=== PATIENT | male | born 1970 | race Caucasian/White ===

== ENCOUNTER 2019-06-25 12:45 | Outpatient (CLI) | payer BC, SELFPAY ==
--- NOTE | 2019-06-25 13:07 | XR_ITS ---
WS: [id number] XR ankle LT min 3V* [id number] REASON FOR EXAM: ankle pain FINDINGS: A pseudoarthrosis is noted between the tibia and fibula distally. There is mild degenerate changes of the articulation of the fibula with the talus. A remote fracture of the fibula is seen which is healed. XR/XR ankle LT min 3V* [id number] IMPRESSION: Pseudoarthrosis between the tibia and fibula Osteoarthritic changes of the ankle.
--- NOTE | 2019-06-25 13:07 | XR_ITS ---
WS: [id number] XR knee RT 3V* [id number] REASON FOR EXAM: knee pain FINDINGS: Degenerate changes along the articular surface of the medial and lateral knee. There is spurring off the medial condyle of the femur and medial tibial plateau. The patellofemoral articulation shows mild osteoarthritic changes. XR/XR knee RT 3V* [id number] IMPRESSION: Osteoarthritic changes of the knee
--- NOTE | 2019-06-25 13:07 | XR_ITS ---
WS: [id number] XR knee LT 3V* [id number] REASON FOR EXAM: knee pain FINDINGS: Mild degenerate changes along the articulation of the femur with the tibia was spurring barndy ng the lateral plateau of the tibia. The patella femoral articulations are normal. The patella tibial space is normal. XR/XR knee LT 3V* [id number] IMPRESSION: Mild osteoarthritic changes of the knee.
== END 2019-06-25 12:46 | disposition home or self-care (01) ==
LOC: RADWPI 12:49
PROVIDERS: Family Provider Family Medicine; PCP Family Medicine; Visit Provider Family Medicine
DX: M17.12 Unilateral primary osteoarthritis, left knee (principal); M25.562 Pain in left knee; M19.072 Primary osteoarthritis, left ankle and foot; M96.0 Pseudarthrosis after fusion or arthrodesis; Y83.8 Other surgical procedures as the cause of abnormal reaction of the patient, or of later complication, without mention of misadventure at the time of the procedure
CPT/HCPCS: 73562; 73610; 80053; 80061; 83036

== ENCOUNTER 2019-11-12 14:00 | Emergency (ER) | payer BC, SELFPAY ==
[2019-11-12] VITALS (12 sets, daily range): BP systolic 96–125; BP diastolic 61–82; PULSE 54–75; RESP 14–19; TEMP 36.4; O2SAT 94–99; BMI 36.8
--- NOTE | 2019-11-12 14:16 | ECG_ITS ---
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 Measurements Intervals [place] Rate: 78 P: 7 AZ: 179 QRS: 17 QRSD: 98 T: -8 QT: 374 QTc: 427 Interpretive Statements SINUS RHYTHM Compared to ECG 02/13/2019 12:11:29 No significant changes Electronically Signed On 11-12-2019 16:54:06 CDT by Andrew Castillo M.D. [id number]
--- NOTE | 2019-11-12 14:17 | ED_ITS ---
HPI - Chest Pain General: Chief Complaint: Chest Pain Stated Complaint: cp Time Seen by Provider: 11/12/19 14:10 History of Present Illness: HPI narrative: This patient is a 49-year-old male presenting today with chest pain. Started about 1245 this afternoon. He was folding laundry at the time. He has had similar chest pain in February when he was admitted to the hospital for it. He had an angiogram which he said showed spasm of the arteries but no blockages. He does have a history of diabetes, hypercholesterol, hypertension. Since his heart problems in the fall he is lost about 40 pounds and has been really trying to get his health under control. He was started on isosorbide mononitrate after the angiogram and he is continued to take that. He also took 2 nitro tablets this afternoon which did help the pain. It started at about a 7 out of 10 and is now at a 4 out of 10. MD complaint: chest pain and chest heaviness Pertinent past history: prior SC and other (Coronary artery spasm) Onset (ago): hour(s) (2) Timing of current episode: constant Prior episodes: Yes Onset: other (During light activity) Pain location: left chest Pain radiation: left arm Severity: moderate Quality: tightness and aching Relieving factors: nitroglycerin and rest Exacerbating factors: nothing Associated symptoms: Reports nausea; Deny dyspnea or fever(s) Review of Systems General: Reports: 10 or more systems reviewed and unremarkable except in HPI and below Const: Denies: fever(s), chills, fatigue or malaise Eyes: Denies: change in vision ENMT: Denies: odynophagia Card: Denies: chest pain or swelling of feet/ankles Resp: Denies: dyspnea, productive cough or non-productive cough GI: Reports: nausea : Denies: flank pain Musc: Denies: neck pain or back pain Skin/Breast: Denies: rash Neuro: Denies: headache(s), numbness in extremities or weakness in extremities Enrique/Lymph: Denies: easy bruising or easy bleeding PFS ED PFSH: Medical History Diabetes Hypercholesteremia Hypertension Osteoarthritis of knees, bilateral Osteoarthritis of left ankle Unstable angina Social History Smoking and tobacco status: never smoked Alcohol intake: never Physical Exam Const: COMMON NORMALS: no acute distress, patient oriented x3, no limitations and alert GENERAL APPEARANCE: cooperative and comfortable HENMT: HEAD & SCALP: normal to inspection FACE & SINUS: normal facial exam Eye: GENERAL EYE: appearance normal, both eyes and all related structures Neck/C-Spine: COMMON NORMALS: supple, no meningeal signs and no JVD Chest: COMMONS NORMALS: normal inspection of the chest Resp: COMMON NORMALS: normal respiratory effort, No use of accessory muscles and clear to auscultation bilaterally AUSCULTATION: clear to auscultation bilaterally Cardio: COMMON NORMALS: no JVD, regular rate, regular rhythm and No murmurs present (Cardio) RATE: regular rate RHYTHM: regular rhythm GI: COMMON NORMALS: Normal to inspection, nondistended, normoactive bowel sounds present, Soft to palpation and non-tender INSPECTION: Yes normal to inspection AUSCULTATION: Yes normoactive bowel sounds PALPATION: Yes Soft to palpation Back/Pelvis: COMMON NORMALS: thoracic and lumbar spine normal to inspection Extremity: COMMON NORMALS: normal to inspection Neuro: COMMON NORMALS: patient oriented x3, moves all extremities, no focal motor deficits and no sensory deficits noted SENSORIUM/ORIENTATION: Yes alert MENINGEAL SIGNS: Yes no meningeal signs Psych: COMMON NORMALS: mental status grossly normal, cooperative and normal affect Skin: COMMON NORMALS: no rashes or lesions noted and turgor normal GENERAL SKIN EXAM: no rashes or lesions noted and turgor normal Course ED course: Patient presented with chest pain. He has a history of SC related to coronary artery spasm. His symptoms resolved while in the ED. His troponins are negative and his EKG is unchanged. We discussed admission versus outpatient follow-up and he prefers to go home. I think he is safe to do so. Vital Signs: Vital signs: Vital Signs Temperature 97.6 F 11/12/19 14:09 Pulse Rate 67 11/12/19 18:28 Respiratory Rate 18 11/12/19 18:28 Blood Pressure 125/82 11/12/19 18:28 Pulse Oximetry 97 11/12/19 18:28 MDM - Chest Pain Lab Data: Labs: Lab Results 11/12/19 11/12/19 11/12/19 Range/Units 14:15 14:15 14:15 WBC 6.2 (4.0-10.0) 10^3/ uL RBC 4.80 (4.1-5.3) 10^6/u L Hgb 13.6 (11.7-16.6) g/dL Hct 40.7 L (42.0-52.0) % MCV 84.8 (80-94) fL MCH 28.3 (28.0-34.0) pg MCHC 33.4 (30.0-36.0) g/dL RDW 12.3 (12.1-15.1) % Plt Count 116 L (130-400) 10^3/c mm MPV 10.7 H (7.4-10.4) fL Neut % (Auto) 44.4 % Lymph % (Auto) 37.8 % [place] % (Auto) 7.7 % Eos % (Auto) 9.3 % Baso % (Auto) 0.6 % Neut # (Auto) 2.76 (1.8-7.7) 10^3/u L Lymph # (Auto) 2.4 (0.8-4.8) 10^3/u L [place]rill # (Auto) 0.5 (0.2-0.9) 10^3/u L Eos # (Auto) 0.6 (0.0-0.8) 10^3/u L Baso # (Auto) 0.0 (0.0-0.1) 10^3/u L Nucleated RBC % (a uto) 0 % Nucleated RBCs # 0.0 /100WBC PT 13.20 (12.1-14.9) SECO NDS INR 0.98 (0.8-1.2) Sodium 139 (136-145) mmol/L Potassium 4.0 (3.5-5.1) mmol/L Chloride 103 (98-107) mmol/L Carbon Dioxide 25 (22-29) mmol/L Anion Gap 15.0 (5-19) BUN 18 (6-20) mg/dL Creatinine 0.7 (0.7-1.2) mg/dL GFR Calculation 120.4 (90-130) mL/min Glucose 181 H (65-115) mg/dL Calculated Osmolal ity 289 (285-295) mOsm/k g Calcium 10.0 (8.5-10.5) mg/dL Total Bilirubin 0.3 (0.15-1.2) mg/dL AST 19 (0-40) U/L ALT 22 (0-41) U/L Alkaline Phosphata se 66 (40-130) IU/L Troponin T Baselin e (0-15) ng/L Troponin T 120 Min [place] (0-15) ng/L Delta Troponin T (0-10) ABS# Total Protein 7.0 (6.6-8.7) g/dL Albumin 5.0 (3.5-5.2) g/dL Globulin 2.0 (1.3-4.6) g/dL Lipase 47 (13-60) U/L 11/12/19 11/12/19 Range/Units 14:15 16:38 WBC (4.0-10.0) 10^3/ uL RBC (4.1-5.3) 10^6/u L Hgb (11.7-16.6) g/dL Hct (42.0-52.0) % MCV (80-94) fL MCH (28.0-34.0) pg MCHC (30.0-36.0) g/dL RDW (12.1-15.1) % Plt Count (130-400) 10^3/c mm MPV (7.4-10.4) fL Neut % (Auto) % Lymph % (Auto) % [place] % (Auto) % Eos % (Auto) % Baso % (Auto) % Neut # (Auto) (1.8-7.7) 10^3/u L Lymph # (Auto) (0.8-4.8) 10^3/u L [place] # (Auto) (0.2-0.9) 10^3/u L Eos # (Auto) (0.0-0.8) 10^3/u L Baso # (Auto) (0.0-0.1) 10^3/u L Nucleated RBC % (a uto) % Nucleated RBCs # /100WBC PT (12.1-14.9) SECO NDS INR (0.8-1.2) Sodium (136-145) mmol/L Potassium (3.5-5.1) mmol/L Chloride (98-107) mmol/L Carbon Dioxide (22-29) mmol/L Anion Gap (5-19) BUN (6-20) mg/dL Creatinine (0.7-1.2) mg/dL GFR Calculation (90-130) mL/min Glucose (65-115) mg/dL Calculated Osmolal ity (285-295) mOsm/k g Calcium (8.5-10.5) mg/dL Total Bilirubin (0.15-1.2) mg/dL AST (0-40) U/L ALT (0-41) U/L Alkaline Phosphata se (40-130) IU/L Troponin T Baselin e 10 (0-15) ng/L Troponin T 120 Min [place] 8.98 (0-15) ng/L Delta Troponin T -1.02 L (0-10) ABS# Total Protein (6.6-8.7) g/dL Albumin (3.5-5.2) g/dL Globulin (1.3-4.6) g/dL Lipase (13-60) U/L Discharge Plan Discharge Patient Disposition: Home Clinical Impression: Chest pain Qualifiers: Chest pain type: unspecified Qualified Code(s): R07.9 - Chest pain, unspecified Condition: Stable Prescriptions: No Action isosorbide mononitrate 30 mg tablet extended release 24 hr 30 mg PO DAILY 30 Days Qty: 30 RF: 5 lisinopril 20 mg tablet 20 mg PO DAILY 90 Days Qty: 90 RF: 3 metoprolol tartrate 50 mg tablet 25 mg PO BID 90 Days Qty: 90 RF: 3 lovastatin 20 mg tablet 20 mg PO DAILY 90 Days Qty: 90 RF: 3 metformin 1,000 mg tablet 1,000 mg PO DAILY 90 Days Qty: 90 RF: 3 glyburide 5 mg tablet 5 mg PO DAILY RF: 0 hydrochlorothiazide 25 mg tablet 12.5 mg PO DAILY RF: 0 Discharge Orders: Discharge Order (Routine); Ordered 11/12/19 Ordered By: Ava Tapia Referrals: Carlos Cameron MD [Primary Care Provider] - Princess Mederos MD [Physician] - 4-7 days Discharge Diet: Usual diet Discharge Activity: Resume usual activity Patient Instructions: Chest Pain (ED) Activity Restrictions/Additional Instructions: Return to the emergency department if you have new or worse symptoms or chest pain that does not resolve with nitro. Call Dr. Mederos's office in the morning to arrange close follow-up. Discharge Date/Time: 11/12/19 18:30 Coding Level of Care Code ED Certified Medical Dosimetrist for Kimberly Fwsuze Exam Comprehensive
[2019-11-12] MEDS: nitroglycerin 1 gm/inch oint Pkt 0.5 INCH TOPICAL (14:21)
[2019-11-12] MEDS: sodium chloride 0.9% 500 ML 999 ML IV (14:21)
[2019-11-12 14:32] LABS: Basophils % 0.6 %; Eosinophils # 0.6 10^3/uL (0.0-0.8); Eosinophils % 9.3 %; Hematocrit 40.7 % (42.0-52.0); Hemoglobin 13.6 g/dL (11.7-16.6); Lymphocytes # 2.4 10^3/uL (0.8-4.8); Lymphocytes % 37.8 %; Mean Corpuscular HGB Conc 33.4 g/dL (30.0-36.0); Mean Corpuscular Hemoglobin 28.3 pg (28.0-34.0); Mean Corpuscular Volume 84.8 fL (80-94); Mean Platelet Volume 10.7 fL (7.4-10.4); Monocytes # 0.5 10^3/uL (0.2-0.9); Monocytes % 7.7 %; Neutrophils # 2.76 10^3/uL (1.8-7.7); Neutrophils % 44.4 %; Nucleated Red Blood Cells % 0 %; Platelet Count 116 10^3/cmm (130-400); Red Cell Distribution Width 12.3 % (12.1-15.1); White Blood Count 6.2 10^3/uL (4.0-10.0)
[2019-11-12 14:47] LABS: INR 0.98 (0.8-1.2)
[2019-11-12 14:53] LABS: Alanine Aminotransferase 22 U/L (0-41); Alkaline Phosphatase 66 IU/L (40-130); Aspartate Amino Transferase 19 U/L (0-40); Blood Urea Nitrogen 18 mg/dL (6-20); Carbon Dioxide 25 mmol/L (22-29); Chloride 103 mmol/L (98-107); Creatinine Clr Calc Pharmacy 150.2258; Glomerular Filtration Rate 120.4 mL/min (90-130); Glucose 181 mg/dL (65-115); Lipase 47 U/L (13-60); Osmolality Calculated 289 mOsm/kg (285-295); Sodium 139 mmol/L (136-145); Total Bilirubin 0.3 mg/dL (0.15-1.2)
[2019-11-12 14:56] LABS: Troponin(5th) Baseline 10 ng/L (0-15)
--- NOTE | 2019-11-12 16:05 | XRR_ITS ---
PROCEDURE INFORMATION: Exam: XR Chest, 1 View Exam date and time: 11/12/2019 4:29 PM Age: 49 years old Clinical indication: Chest pain; Type not specified TECHNIQUE: Imaging protocol: XR of the chest Views: 1 view. COMPARISON: CR Chest 1 [place] [id number] 02/11/2019 11:39 AM FINDINGS: Lungs: Unremarkable. No consolidation. Pleural space: Unremarkable. No pleural effusion. No pneumothorax. Heart/Mediastinum: Unremarkable. No cardiomegaly. Bones/joints: Unremarkable. XR/XR chest 1V portable [id number] IMPRESSION: No acute findings.
[2019-11-12] MEDS: ondansetron 2 mg/ML SDV 2 mL 4 MG IVP (16:11)
[2019-11-12] MEDS: sodium chloride 0.9% 1,000 ML 999 ML IV (16:12)
[2019-11-12] MEDS: morphine 4 mg/mL SDV 1 mL IVP (16:12)
--- NOTE | 2019-11-12 16:16 | ECG_ITS ---
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 Measurements Intervals [place] Rate: 60 P: 13 MS: 175 QRS: 12 QRSD: 108 T: -11 QT: 427 QTc: 428 Interpretive Statements SINUS RHYTHM Compared to ECG 11/12/2019 14:19:19 No significant changes Electronically Signed On 11-12-2019 17:41:08 CDT by Andrew Castillo M.D. [id number]
--- NOTE | 2019-11-12 16:29 | PC.NURSE ---
XR performed at bedside
[2019-11-12 17:05] LABS: Troponin 5 2HR 8.98 ng/L (0-15)
[2019-11-12 17:17] LABS: Troponin 5 2HR Delta -1.02 ABS# (0-10)
== END 2019-11-12 18:30 | disposition home or self-care (01) ==
PROVIDERS: Emergency Provider Emergency Medicine; PCP Family Medicine
DX: R07.9 Chest pain, unspecified (principal); Z79.84 Long term (current) use of oral hypoglycemic drugs; E11.9 Type 2 diabetes mellitus without complications; I10 Essential (primary) hypertension
CPT/HCPCS: 12345; 36415; 71045; 80053; 83690; 84484; 85025; 85610; 93005; 93010; 96360; 96361; 96374; 96375; 99284; J2270; J2405; J7030; J7040

== ENCOUNTER 2020-02-10 20:52 | Emergency (ER) | payer BC, SELFPAY ==
[2020-02-10] VITALS (9 sets, daily range): BP systolic 104–166; BP diastolic 61–96; PULSE 66–95; RESP 15–28; TEMP 36.9; O2SAT 95–98; BMI 39.1
--- NOTE | 2020-02-10 20:57 | XR_ITS ---
WS: [id number] XR chest 1V portable [id number] REASON FOR EXAM: Chest pain FINDINGS: The chest is essentially unchanged compared to previous examination of 11/12/2019. There is mild card iomegaly. XR/XR chest 1V portable [id number] IMPRESSION: Chest is unchanged with mild cardiomegaly.
--- NOTE | 2020-02-10 20:58 | ECG_ITS ---
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 Measurements Intervals [place] Rate: 90 P: 32 AZ: 171 QRS: 1 QRSD: 106 T: -11 QT: 360 QTc: 441 Interpretive Statements SINUS RHYTHM Compared to ECG 11/12/2019 16:47:12 No significant changes Electronically Signed On 02-11-2020 19:23:14 LIGHT RAIL TRAIN OPERATOR by Princess Mederos M.D. [id number]
--- NOTE | 2020-02-10 21:00 | ED_ITS ---
HPI - Chest Pain General: Chief Complaint: Chest Pain Stated Complaint: CHEST PAIN Time Seen by Provider: 02/10/20 20:54 Source: patient Mode of arrival: ambulatory Limitations: no limitations History of Present Illness: HPI narrative: Jake is a nice 49-year-old male who comes in complaining of chest pain. States he got into an arguing type fight with his daughter and developed sharp stabbing chest pain. It was intermittent. Patient said he got very anxious and did have one episode of nausea and vomiting. He was short of breath. Otherwise the patient denies any radiation of his pain, diaphoresis, exertional worsening of his pain or other complaint. Patient states that he has had a heart attack in the past. His last heart attack was approximately 1 year ago and states that he did not receive any stents at that time. Patient took 3 of his own sublingual nitroglycerin in route here to the hospital with complete resolution of his pain. Associated symptoms: Reports dyspnea, nausea and vomiting; Deny abdominal pain, diaphoresis, fever(s), palpitations or syncope Review of Systems Const: Denies: fever(s), chills, body aches, fatigue, malaise or diaphoresis Eyes: Denies: change in vision, blurry vision, photophobia, eye discomfort, eye discharge, eye redness or yellow eyes ENMT: Denies: throat pain, odynophagia, hoarseness, swelling of lips/tongue, ear or mastoid pain, ear discharge, change in hearing or nasal discharge Card: Reports: chest pain; Denies: palpitations, irregular heart rhythm, edema, lightheadedness, syncope, pre-syncope, dyspnea on exertion or orthopnea Resp: Reports: dyspnea; Denies: productive cough, non-productive cough, wheezing, hemoptysis or chest congestion GI: Reports: nausea and vomiting; Denies: abdominal pain, hematemesis, coffee ground emesis, heartburn, diarrhea, constipation, GI cramping, hematochezia or melena : Denies: flank pain, dysuria, urinary frequency, urinary urgency or hematuria Musc: Denies: neck pain, back pain, extremity pain, extremity swelling, joint pain, joint swelling, joint redness, joint warmth or joint stiffness Skin/Breast: Denies: rash, pruritus, erythema, skin pain or skin tenderness Neuro: Denies: headache(s), numbness in extremities, weakness in extremities, sensory changes, lack of coordination, difficulty walking, dizziness, vertigo, confusion, Slurred speech present or seizure-like activity Enrique/Lymph: Denies: easy bruising, easy bleeding, petechiae, purpura or enlarged lymph nodes All/Imm: Denies: urticaria, throat swelling, tongue swelling, facial swelling or acute wheezing PFSH ED PFSH: Medical History Diabetes Hypercholesteremia Hypertension Osteoarthritis of knees, bilateral Osteoarthritis of left ankle Unstable angina Social History Smoking and tobacco status: never smoked Alcohol intake: never Physical Exam Const: COMMON NORMALS: no acute distress, patient oriented x3, no limitations and alert GENERAL APPEARANCE: cooperative HENMT: COMMON NORMALS: normocephalic, atraumatic, external ears normal, EAC's normal and Normal external nose present HEAD & SCALP: normal to inspection, normocephalic and atraumatic FACE & SINUS: normal facial exam and face symmetric NOSE: Normal external nose present and Normal nares present EXTERNAL EAR: Yes external ears normal EXTERNAL AUDITORY CANAL: EAC's normal MOUTH: Normal oral and palatal mucosa present, lip normal and tongue normal Eye: COMMON NORMALS: Equal, round and reactive pupils present and conjunctivae normal GENERAL EYE: appearance normal, both eyes and all related structures ALIGNMENT: Yes alignment normal PERIORBITAL: periorbital findings normal EYELID: eyelids normal CONJUNCTIVA: Yes conjunctivae normal SCLERA: sclerae normal PUPIL: Yes Equal, round and reactive pupils present Neck/C-Spine: COMMON NORMALS: full ROM, no lymphadenopathy, supple, no meningeal signs and no JVD GENERAL: Yes normal visual inspection and Yes trachea midline Chest: COMMONS NORMALS: normal inspection of the chest and normal palpation of entire chest wall Resp: COMMON NORMALS: normal respiratory effort, No retractions, No use of accessory muscles and clear to auscultation bilaterally EFFORT & INSPECTION: Yes able to speak in complete sentences and Yes symmetric chest movement AUSCULTATION: clear to auscultation bilaterally, no crackles, no rales, no rhonchi and no wheezes Cardio: COMMON NORMALS: no JVD, regular rate, regular rhythm, S1 normal heart sound present and S2 normal heart sound present RATE: regular rate RHYTHM: regular rhythm HEART SOUNDS: S1 normal heart sound present, S2 normal heart sound present, no click, no gallops, no murmurs and no rubs GI: COMMON NORMALS: Soft to palpation and No hepatosplenomegaly present PALPATION: Yes Soft to palpation, No Tenderness to palpation present (GI), No Guarding due to palpation present (GI), No Rigid due to palpation, Yes No hepatosplenomegaly present, No Hernia present, No Palpable mass present and No Pulsatile mass present : COMMON NORMALS: Yes no CVA tenderness BLADDER/KIDNEY EXAM: Yes no CVA tenderness Back/Pelvis: COMMON NORMALS: no CVA tenderness, thoracic and lumbar spine normal to inspection, no thoracic nor lumbar tenderness and thoraco-lumbar ROM normal Extremity: COMMON NORMALS: normal to inspection, full ROM, capillary refill normal, no joint enlargement, no clubbing, cyanosis or edema and no calf tenderness Neuro: COMMON NORMALS: patient oriented x3, CN's II-XII intact bilaterally, moves all extremities, no focal motor deficits and no sensory deficits noted SENSORIUM/ORIENTATION: Yes alert MENINGEAL SIGNS: Yes no meningeal signs SPEECH: speech normal Psych: COMMON NORMALS: mental status grossly normal, Normal thought process present, cooperative, normal affect, speech normal and activity/motor behavior normal SPEECH: Yes normal speech THOUGHT PROCESS: Normal thought process present Skin: COMMON NORMALS: no rashes or lesions noted, turgor normal, no jaundice, no petechiae and no mottling GENERAL SKIN EXAM: no rashes or lesions noted and turgor normal Course Vital Signs: Vital signs: Vital Signs Temperature 98.4 F 02/10/20 20:56 Pulse Rate 70 02/11/20 00:03 Respiratory Rate 18 02/11/20 00:03 Blood Pressure 122/68 02/11/20 00:03 Pulse Oximetry 97 02/11/20 00:03 MDM - Chest Pain MDM Narrative: Medical decision making narrative: 0486 -the case was reviewed with Dr. Mederos, she agrees with the patient has a low heart score which he does and a heart cath that was done less than 1 year ago showing no evidence of co ronary disease the patient can be discharged home. His pain is likely due to vasospasm. She did recommend increasing his isosorbide to 30 mg twice daily and the patient agrees to do this. He also agrees to follow-up with her in the office soon as possible for recheck. The patient has never had any recurrent chest pain since being here. Medical Records: Attestation: I reviewed the patient's medical records. Medical records narrative: Cardiac catheterization from reveals completely normal coronary arteries. Ejection fraction was 65%. Hospitalization with discharge 02/14/2019 revealed the patient had elevation of cardiac enzymes but because of an abnormal stress test he had a heart catheter which revealed no evidence of coronary blockage. Patient had recurrent atypical pain even after the heart cath on that hospitalization. It is unclear what they felt was the cause of the elevated cardiac enzymes were at that time. Patient personally relates it was thought to be due to vasospasm. Lab Data: Attestation: I reviewed the patient's lab results. Labs: Lab Results 02/10/20 02/10/20 02/10/20 Range/Units 21:05 21:05 21:05 WBC 8.3 (4.0-10.0) 10^3/ uL RBC 4.95 (4.1-5.3) 10^6/u L Hgb 14.2 (11.7-16.6) g/dL Hct 41.7 L (42.0-52.0) % MCV 84.2 (80-94) fL MCH 28.7 (28.0-34.0) pg MCHC 34.1 (30.0-36.0) g/dL RDW 12.1 (12.1-15.1) % Plt Count 126 L (130-400) 10^3/c mm MPV 10.6 H (7.4-10.4) fL Neut % (Auto) 59.2 % Lymph % (Auto) 28.1 % Mccreary % (Auto) 6.6 % Eos % (Auto) 5.5 % Baso % (Auto) 0.4 % Neut # (Auto) 4.91 (1.8-7.7) 10^3/u L Lymph # (Auto) 2.3 (0.8-4.8) 10^3/u L Mccreary # (Auto) 0.6 (0.2-0.9) 10^3/u L Eos # (Auto) 0.5 (0.0-0.8) 10^3/u L Baso # (Auto) 0.0 (0.0-0.1) 10^3/u L Nucleated RBC % (a uto) 0 % Nucleated RBCs # 0.0 /100WBC PT 13.60 (12.1-14.9) SECO NDS INR 1.01 (0.8-1.2) D-Dimer <= 0.27 (0-0.59) ug/mIFE U Sodium Cancelled Potassium Cancelled Chloride Cancelled Carbon Dioxide Cancelled Anion Gap Cancelled BUN Cancelled Creatinine Cancelled GFR Calculation Cancelled Glucose Cancelled Calculated Osmolal ity Cancelled Calcium Cancelled Magnesium Cancelled Total Bilirubin Cancelled AST Cancelled ALT Cancelled Alkaline Phosphata se Cancelled Troponin T Baselin e (0-15) ng/L Troponin T 120 Min ruby (0-15) ng/L Delta Troponin T (0-10) ABS# NT-Pro-B Natriuret Pep Cancelled Total Protein Cancelled Albumin Cancelled Globulin Cancelled Lipase Cancelled Urine Color (Yellow) Urine Appearance (CLEAR) Urine pH (5-7) Ur Specific Gravit y (1.005-1.030) Urine Protein (Negative) Urine Glucose (UA) (Normal) Urine Ketones (Negative) Urine Blood (Negative) Urine Nitrate (Negative) Urine Bilirubin (Negative) Urine Urobilinogen (Negative) mg/dL Ur Leukocyte Danielle ase (Negative) 02/10/20 02/10/20 02/10/20 Range/Units 21:05 22:09 22:10 WBC (4.0-10.0) 10^3/ uL RBC (4.1-5.3) 10^6/u L Hgb (11.7-16.6) g/dL Hct (42.0-52.0) % MCV (80-94) fL MCH (28.0-34.0) pg MCHC (30.0-36.0) g/dL RDW (12.1-15.1) % Plt Count (130-400) 10^3/c mm MPV (7.4-10.4) fL Neut % (Auto) % Lymph % (Auto) % Mccreary % (Auto) % Eos % (Auto) % Baso % (Auto) % Neut # (Auto) (1.8-7.7) 10^3/u L Lymph # (Auto) (0.8-4.8) 10^3/u L Mccreary # (Auto) (0.2-0.9) 10^3/u L Eos # (Auto) (0.0-0.8) 10^3/u L Baso # (Auto) (0.0-0.1) 10^3/u L Nucleated RBC % (a uto) % Nucleated RBCs # /100WBC PT (12.1-14.9) SECO NDS INR (0.8-1.2) D-Dimer (0-0.59) ug/mIFE U Sodium 138 Potassium 3.8 Chloride 103 Carbon Dioxide 23 Anion Gap 15.8 BUN 13 Creatinine 0.8 GFR Calculation 103.2 Glucose 318 H Calculated Osmolal ity 298 H Calcium 9.3 Magnesium 1.7 Total Bilirubin 0.2 AST 16 ALT 23 Alkaline Phosphata se 65 Troponin T Baselin e 23 H (0-15) ng/L Troponin T 120 Min ruby (0-15) ng/L Delta Troponin T (0-10) ABS# NT-Pro-B Natriuret Pep 20 Total Protein 6.7 Albumin 4.2 Globulin 2.5 Lipase 40 Urine Color Yellow (Yellow) Urine Appearance Clear (CLEAR) Urine pH 5.0 (5-7) Ur Specific Gravit y 1.020 (1.005-1.030) Urine Protein Neg (Negative) Urine Glucose (UA) 4+ H (Normal) Urine Ketones 1+ H (Negative) Urine Blood Neg (Negative) Urine Nitrate Negative (Negative) Urine Bilirubin Neg (Negative) Urine Urobilinogen Norm (Negative) mg/dL Ur Leukocyte Danielle ase Negative (Negative) 02/10/20 Range/Units 22:50 WBC (4.0-10.0) 10^3/ uL RBC (4.1-5.3) 10^6/u L Hgb (11.7-16.6) g/dL Hct (42.0-52.0) % MCV (80-94) fL MCH (28.0-34.0) pg MCHC (30.0-36.0) g/dL RDW (12.1-15.1) % Plt Count (130-400) 10^3/c mm MPV (7.4-10.4) fL Neut % (Auto) % Lymph % (Auto) % Mccreary % (Auto) % Eos % (Auto) % Baso % (Auto) % Neut # (Auto) (1.8-7.7) 10^3/u L Lymph # (Auto) (0.8-4.8) 10^3/u L Mccreary # (Auto) (0.2-0.9) 10^3/u L Eos # (Auto) (0.0-0.8) 10^3/u L Baso # (Auto) (0.0-0.1) 10^3/u L Nucleated RBC % (a uto) % Nucleated RBCs # /100WBC PT (12.1-14.9) SECO NDS INR (0.8-1.2) D-Dimer (0-0.59) ug/mIFE U Sodium Potassium Chloride Carbon Dioxide Anion Gap BUN Creatinine GFR Calculation Glucose Calculated Osmolal ity Calcium Magnesium Total Bilirubin AST ALT Alkaline Phosphata se Troponin T Baselin e (0-15) ng/L Troponin T 120 Min ruby 9.68 (0-15) ng/L Delta Troponin T -13.32 L (0-10) ABS# NT-Pro-B Natriuret Pep Total Protein Albumin Globulin Lipase Urine Color (Yellow) Urine Appearance (CLEAR) Urine pH (5-7) Ur Specific Gravit y (1.005-1.030) Urine Protein (Negative) Urine Glucose (UA) (Normal) Urine Ketones (Negative) Urine Blood (Negative) Urine Nitrate (Negative) Urine Bilirubin (Negative) Urine Urobilinogen (Negative) mg/dL Ur Leukocyte Danielle ase (Negative) Imaging Data^: CXR: Attestation: I personally reviewed and interpreted this imaging study as follows: My impression: No acute cardiopulmonary findings. EKG Data^: EKG 1: Attestation: I personally reviewed and interpreted this EKG as follows: EKG interpretation date: 02/10/20 EKG interpretation time: 21:10 Interpretation: Normal sinus rhythm at 90 beats a minute, no blocks, normal intervals, T waves inverted in were normal 3 and aVF. Unchanged from previous. EKG 2: Attestation: I personally reviewed and interpreted this EKG as follows: EKG interpretation date: 02/10/20 EKG interpretation time: 22:47 Interpretation: Normal sinus rhythm at 71 beats a minute, no blocks, normal intervals, no new acute ST-T wave changes. T waves inverted in III and aVF unchanged from previous. Discharge Plan Discharge Patient Disposition: Home Clinical Impression: Chest pain Qualifiers: Chest pain type: unspecified Qualified Code(s): R07.9 - Chest pain, unspecified Condition: Stable Prescriptions: No Action lisinopril 20 mg tablet 10 mg PO DAILY 90 Days Qty: 90 RF: 3 pantoprazole [Protonix] 20 mg tablet,delayed release (DR/EC) 20 mg PO DAILY Qty: 30 RF: 2 metoprolol tartrate 50 mg tablet 25 mg PO BID 90 Days Qty: 90 RF: 3 lovastatin 20 mg tablet 20 mg PO DAILY 90 Days Qty: 90 RF: 3 isosorbide mononitrate 30 mg tablet extended release 24 hr 30 mg PO .COMPLEX Qty: 45 RF: 5 metformin 1,000 mg tablet 1,000 mg PO DAILY 90 Days Qty: 90 RF: 3 glyburide 5 mg tablet 5 mg PO DAILY RF: 0 hydrochlorothiazide 25 mg tablet 12.5 mg PO DAILY RF: 0 Discharge Orders: Discharge Order (Routine); Ordered 02/10/20 Ordered By: Laura Cruz Referrals: Carlos Cameron MD [Primary Care Provider] - Princess Mederos MD [Physician] - 1-3 days Discharge Diet: Cardiac Discharge Activity: Resume usual activity Patient Instructions: Chest Pain (ED) Activity Restrictions/Additional Instructions: Please return to the ER immediately for any of the signs or symptoms listed on your discharge instruction sheets, worsening/changing of your symptoms, you are not getting better as quickly as expected, or for ANY other cause or concerns. Be certain to call Dr. Gurrola's office as soon as possible for recheck. Increase your isosorbide as discussed with Dr. Mederos. You should not be taking 30 mg twice a day. Discharge Date/Time: 02/11/20 00:06 Coding Level of Care Code ED Ear Nose And Throat Specialist for Kimberly Fwd Exam Comprehensive
[2020-02-10] MEDS: aspirin 325 mg Tablet PO (21:11)
[2020-02-10 21:13] LABS: Basophils % 0.4 %; Eosinophils # 0.5 10^3/uL (0.0-0.8); Eosinophils % 5.5 %; Hematocrit 41.7 % (42.0-52.0); Hemoglobin 14.2 g/dL (11.7-16.6); Lymphocytes # 2.3 10^3/uL (0.8-4.8); Lymphocytes % 28.1 %; Mean Corpuscular HGB Conc 34.1 g/dL (30.0-36.0); Mean Corpuscular Hemoglobin 28.7 pg (28.0-34.0); Mean Corpuscular Volume 84.2 fL (80-94); Mean Platelet Volume 10.6 fL (7.4-10.4); Monocytes # 0.6 10^3/uL (0.2-0.9); Monocytes % 6.6 %; Neutrophils # 4.91 10^3/uL (1.8-7.7); Neutrophils % 59.2 %; Nucleated Red Blood Cells % 0 %; Platelet Count 126 10^3/cmm (130-400); Red Blood Count 4.95 10^6/uL (4.1-5.3); Red Cell Distribution Width 12.1 % (12.1-15.1); White Blood Count 8.3 10^3/uL (4.0-10.0)
[2020-02-10 21:32] LABS: INR 1.01 (0.8-1.2)
[2020-02-10 21:34] LABS: D Dimer <= 0.27 ug/mIFEU (0-0.59)
[2020-02-10 21:52] LABS: Troponin(5th) Baseline 23 ng/L (0-15)
[2020-02-10 22:11] LABS: Add Urine Microscopic? NO
[2020-02-10 22:44] LABS: Alanine Aminotransferase 23 U/L (0-41); Albumin Level 4.2 g/dL (3.5-5.2); Alkaline Phosphatase 65 IU/L (40-130); Anion Gap 15.8 (5-19); Aspartate Amino Transferase 16 U/L (0-40); Blood Urea Nitrogen 13 mg/dL (6-20); Calcium 9.3 mg/dL (8.5-10.5); Carbon Dioxide 23 mmol/L (22-29); Chloride 103 mmol/L (98-107); Globulin 2.5 g/dL (1.3-4.6); Glomerular Filtration Rate 103.2 mL/min (90-130); Glucose 318 mg/dL (65-115); Lipase 40 U/L (13-60); Magnesium 1.7 mg/dL (1.7-2.3); NT Pro B Type Natriuretic Pept 20 pg/mL (0-125); Osmolality Calculated 298 mOsm/kg (285-295); Potassium 3.8 mmol/L (3.5-5.1); Sodium 138 mmol/L (136-145); Total Bilirubin 0.2 mg/dL (0.15-1.2); Total Protein 6.7 g/dL (6.6-8.7)
--- NOTE | 2020-02-10 22:58 | ECG_ITS ---
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 Measurements Intervals [place] Rate: 71 P: 30 MI: 184 QRS: -1 QRSD: 109 T: -13 QT: 378 QTc: 413 Interpretive Statements SINUS RHYTHM Compared to ECG 02/10/2020 21:10:32 No significant changes Electronically Signed On 02-11-2020 19:39:01 BLOOD BANK LABORATORY TECHNOLOGIST by Princess Mederos M.D. [email or web address]
[2020-02-10 23:02] LABS: Bilirubin Urine Neg (Negative); Blood Urine Neg (Negative); Glucose Urine UA 4+ (Normal); Ketones Urine 1+ (Negative); Leukocyte Esterase Urine Negative (Negative); Nitrate Urine Negative (Negative); Protein Urine Neg (Negative); Urine Appearance Clear (CLEAR); Urine Color Yellow (Yellow); Urobilinogen Urine Norm (Negative)
[2020-02-10 23:51] LABS: Troponin 5 2HR 9.68 ng/L (0-15)
[2020-02-11 00:03] VITALS: BP 122/68; PULSE 70; RESP 18; O2SAT 97
[2020-02-11 00:12] LABS: Troponin 5 2HR Delta -13.32 ABS# (0-10)
== END 2020-02-11 00:06 | disposition home or self-care (01) ==
PROVIDERS: Emergency Provider Emergency Medicine; PCP Family Medicine
DX: R07.9 Chest pain, unspecified (principal); E11.9 Type 2 diabetes mellitus without complications; Z79.84 Long term (current) use of oral hypoglycemic drugs; I10 Essential (primary) hypertension
CPT/HCPCS: 12345; 71045; 80053; 81003; 83690; 83735; 83880; 84484; 85025; 85378; 85610; 93005; 99283; 99284

== ENCOUNTER → 2020-03-08 15:32 | Outpatient (BNVA) | payer BC, SELFPAY | PROVIDERS: PCP Family Medicine; Visit Provider Family Medicine | DX: J22 Unspecified acute lower respiratory infection (principal) | CPT/HCPCS: 87400; 87635 ==

== ENCOUNTER 2020-06-04 18:44 | Emergency (ER) | payer BC, SELFPAY ==
[2020-06-04 18:59] VITALS: BP 172/104; PULSE 76; RESP 18; TEMP 36.6; O2SAT 98; BMI 40.7
--- NOTE | 2020-06-04 19:54 | XRR_ITS ---
PROCEDURE INFORMATION: Exam: XR Chest Exam date and time: 06/04/2020 8:12 PM Age: 50 years old Clinical indication: Other: Dizzy chest pain; Additional info: Cp TECHNIQUE: Imaging protocol: XR of the chest Views: 1 view. COMPARISON: CR XR chest 1V portable [id number] 02/10/2020 8:59 PM FINDINGS: Lungs: Under inflated and clear. Pleural spaces: Unremarkable. No pleural effusion. No pneumothorax. Heart/Mediastinum: The cardiac shadow is mildly enlarged in size. Bones/joints: No acute abnormality. XR/XR chest 1V portable [id number] IMPRESSION: No acute findings.
--- NOTE | 2020-06-04 19:54 | ECG_ITS ---
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 Measurements Intervals [place] Rate: 80 P: 27 NV: 172 QRS: -5 QRSD: 98 T: -4 QT: 352 QTc: 408 Interpretive Statements SINUS RHYTHM Compared to ECG 02/10/2020 22:47:36 No significant changes Electronically Signed On 06-05-2020 10:42:43 FIGHT MANAGER by Princess Mederos M.D. [email or web address]
[2020-06-04] MEDS: ondansetron 2 mg/ML SDV 2 mL 4 MG IVP (20:03)
[2020-06-04] MEDS: morphine 4 mg/mL SDV 1 mL IVP ×2 (20:04→22:57)
[2020-06-04] MEDS: nitroglycerin 1 gm/inch oint Pkt 1 INCH TOPICAL (20:04)
--- NOTE | 2020-06-04 20:08 | PC.PHAR ---
pt states his takes care of his medications-pts states the pt is taking lisinopril 5mg po qam-ext med history shows last filled 12/01/19 for 20mg daily-pts pharmacy is closed no way to verify last fill date-pts states the glyburide 5mg was decreased to once a day-ext med history shows last filled 05/29/20 as 5mg bid-pts states the pt takes hctz 12.5mg po daily-ext med history shows last filled on 04/14/20 25mg po daily
[2020-06-04 20:11] LABS: Basophils # 0.1 10^3/uL (0.0-0.1); Basophils % 0.7 %; Eosinophils # 0.4 10^3/uL (0.0-0.8); Eosinophils % 5.8 %; Hemoglobin 14.4 g/dL (11.7-16.6); Lymphocytes # 3.1 10^3/uL (0.8-4.8); Mean Corpuscular HGB Conc 33.5 g/dL (30.0-36.0); Mean Corpuscular Hemoglobin 28.6 pg (28.0-34.0); Mean Corpuscular Volume 85.3 fL (80-94); Mean Platelet Volume 10.8 fL (7.4-10.4); Monocytes # 0.5 10^3/uL (0.2-0.9); Monocytes % 6.9 %; Neutrophils # 3.29 10^3/uL (1.8-7.7); Neutrophils % 44.3 %; Nucleated Red Blood Cells % 0 %; Platelet Count 128 10^3/cmm (130-400); Red Blood Count 5.04 10^6/uL (4.1-5.3); Red Cell Distribution Width 12.4 % (12.1-15.1); White Blood Count 7.4 10^3/uL (4.0-10.0)
[2020-06-04 20:18] VITALS: BP 131/77; PULSE 78; RESP 25; O2SAT 94
[2020-06-04 20:29] LABS: Alanine Aminotransferase 27 U/L (0-41); Albumin Level 4.3 g/dL (3.5-5.2); Alkaline Phosphatase 66 IU/L (40-130); Anion Gap 16.8 (5-19); Aspartate Amino Transferase 14 U/L (0-40); Blood Urea Nitrogen 15 mg/dL (6-20); Carbon Dioxide 23 mmol/L (22-29); Chloride 103 mmol/L (98-107); Creatine Phosphokinase 106 U/L (39-308); Glomerular Filtration Rate 79.4 mL/min (90-130); Glucose 193 mg/dL (65-115); NT Pro B Type Natriuretic Pept 23 pg/mL (0-125); Osmolality Calculated 294 mOsm/kg (285-295); Potassium 3.8 mmol/L (3.5-5.1); Sodium 139 mmol/L (136-145); Total Bilirubin 0.2 mg/dL (0.15-1.2); Total Protein 7.3 g/dL (6.6-8.7)
[2020-06-04 21:16] LABS: Troponin(5th) Baseline 14 ng/L (0-15)
--- NOTE | 2020-06-04 21:19 | ED_ITS ---
HPI - Chest Pain General: Chief Complaint: Chest Pain Stated Complaint: CP Time Seen by Provider: 06/04/20 19:45 History of Present Illness: HPI narrative: 50-year-old male evidently with a history of coronary spasm. He had a cath a year ago showing clean coronary arteries. He presents for an episode of chest pain this afternoon about 430. He took 2 nitroglycerin at home, with some pain relief, but still having some pain. He presents with continuation of mild chest discomfort he is not short of breath, not nauseated, nondiaphoretic. He is mildly pale. He notes that movement especially deep breaths make the pain worse. Associated symptoms: Deny abdominal pain, dyspnea, fever(s), nausea, palpitations or vomiting Review of Systems Const: Denies: fever(s) or chills Eyes: Denies: change in vision ENMT: Denies: odynophagia or sinus pain Card: Reports: chest pain; Denies: palpitations, irregular heart rhythm or edema Resp: Denies: dyspnea, productive cough, non-productive cough or wheezing GI: Denies: abdominal pain, nausea or vomiting : Denies: difficulty urinating, urinary frequency or hematuria Musc: Denies: neck pain or joint warmth Skin/Breast: Denies: rash or erythema Neuro: Denies: headache(s), dizziness, vertigo or confusion Psych: Denies: anxiety PFSH ED PFSH: Medical History (Updated 06/04/20 @ 21:47 by Vasquez Lowery DO) Diabetes Hypercholesteremia Hypertension Osteoarthritis of knees, bilateral Osteoarthritis of left ankle Unstable angina Social History Smoking and tobacco status: never smoked Alcohol intake: never Physical Exam Const: GENERAL APPEARANCE: well developed ORIENTATION/CONSCIOUSNESS: Yes oriented to person, Yes oriented to place and Yes oriented to time HENMT: COMMON NORMALS: normocephalic, external ears normal and Normal external nose present HEAD & SCALP: normocephalic FACE & SINUS: normal facial exam NOSE: Normal external nose present and No nasal discharge present EXTERNAL EAR: Yes external ears normal Eye: COMMON NORMALS: Equal, round and reactive pupils present, EOMs intact bilaterally and conjunctivae normal EYELID: eyelids normal CONJUNCTIVA: Yes conjunctivae normal PUPIL: Yes Equal, round and reactive pupils present Neck/C-Spine: GENERAL: No tracheal deviation Chest: COMMONS NORMALS: normal inspection of the chest CHEST: No tenderness Resp: COMMON NORMALS: clear to auscultation bilaterally EFFORT & INSPECTION: No tachypneic, No respiratory distress, No retractions, No uses accessory muscles and No tracheal deviation AUSCULTATION: clear to auscultation bilaterally, no rhonchi, no wheezes and lung sounds not diminished Cardio: COMMON NORMALS: regular rate and regular rhythm RATE: regular rate RHYTHM: regular rhythm HEART SOUNDS: no murmurs PERIPHERAL PULSES: radial pulses present GI: INSPECTION: No abdominal distension AUSCULTATION: No Hyperactive bowel sounds present and No Hypoactive bowel sounds present PALPATION: No Guarding due to palpation present (GI) and No Rigid due to palpation PERCUSSION: no dullness to percussion and no tympanic to percussion Neuro: SENSORIUM/ORIENTATION: Yes oriented to person, Yes oriented to place and Yes oriented to time Psych: COMMON NORMALS: mental status grossly normal Skin: COMMON NORMALS: no rashes or lesions noted GENERAL SKIN EXAM: no rashes or lesions noted Course Vital Signs: Vital signs: Vital Signs Temperature 97.8 F 06/04/20 18:59 Pulse Rate 78 06/04/20 23:30 Respiratory Rate 23 H 06/04/20 23:30 Blood Pressure 121/71 06/04/20 23:30 Pulse Oximetry 95 06/04/20 23:30 MDM - Chest Pain MDM Narrative: Medical decision making narrative: 50-year-old with chest pain. EKG is normal sinus rhythm with a normal axis. There is T wave inversion in lead III, without any ST changes. Intervals are normal. Troponin is 14. Blood work is otherwise benign. He has a negative D-dimer. Chest x-ray is negative. He had resolution of his pain after placement nitroglycerin paste and 4 mg of morphine. He would like to go home. His second troponin did not change significantly. Lab Data: Labs: Lab Results 06/04/20 06/04/20 06/04/20 Range/Units 19:50 19:50 19:50 WBC 7.4 (4.0-10.0) 10^3/ uL RBC 5.04 (4.1-5.3) 10^6/u L Hgb 14.4 (11.7-16.6) g/dL Hct 43.0 (42.0-52.0) % MCV 85.3 (80-94) fL MCH 28.6 (28.0-34.0) pg MCHC 33.5 (30.0-36.0) g/dL RDW 12.4 (12.1-15.1) % Plt Count 128 L (130-400) 10^3/c mm MPV 10.8 H (7.4-10.4) fL Neut % (Auto) 44.3 % Lymph % (Auto) 42.0 % Bent % (Auto) 6.9 % Eos % (Auto) 5.8 % Baso % (Auto) 0.7 % Neut # (Auto) 3.29 (1.8-7.7) 10^3/u L Lymph # (Auto) 3.1 (0.8-4.8) 10^3/u L Bent # (Auto) 0.5 (0.2-0.9) 10^3/u L Eos # (Auto) 0.4 (0.0-0.8) 10^3/u L Baso # (Auto) 0.1 (0.0-0.1) 10^3/u L Nucleated RBC % (a uto) 0 % Nucleated RBCs # 0.0 /100WBC D-Dimer 0.30 (0-0.59) ug/mIFE U Sodium 139 (136-145) mmol/L Potassium 3.8 (3.5-5.1) mmol/L Chloride 103 (98-107) mmol/L Carbon Dioxide 23 (22-29) mmol/L Anion Gap 16.8 (5-19) BUN 15 (6-20) mg/dL Creatinine 1.0 (0.7-1.2) mg/dL GFR Calculation 79.4 L (90-130) mL/min Glucose 193 H (65-115) mg/dL Calculated Osmolal ity 294 (285-295) mOsm/k g Calcium 9.0 (8.5-10.5) mg/dL Total Bilirubin 0.2 (0.15-1.2) mg/dL AST 14 (0-40) U/L ALT 27 (0-41) U/L Alkaline Phosphata se 66 (40-130) IU/L Creatine Kinase 106 (39-308) U/L Troponin T Baselin e (0-15) ng/L Troponin T 120 Min absentee-[place] (0-15) ng/L Delta Troponin T (0-10) ABS# NT-Pro-B Natriuret Pep 23 (0-125) pg/mL Total Protein 7.3 (6.6-8.7) g/dL Albumin 4.3 (3.5-5.2) g/dL Globulin 3.0 (1.3-4.6) g/dL 06/04/20 06/04/20 Range/Units 19:50 22:00 WBC (4.0-10.0) 10^3/ uL RBC (4.1-5.3) 10^6/u L Hgb (11.7-16.6) g/dL Hct (42.0-52.0) % MCV (80-94) fL MCH (28.0-34.0) pg MCHC (30.0-36.0) g/dL RDW (12.1-15.1) % Plt Count (130-400) 10^3/c mm MPV (7.4-10.4) fL Neut % (Auto) % Lymph % (Auto) % Bent % (Auto) % Eos % (Auto) % Baso % (Auto) % Neut # (Auto) (1.8-7.7) 10^3/u L Lymph # (Auto) (0.8-4.8) 10^3/u L Bent # (Auto) (0.2-0.9) 10^3/u L Eos # (Auto) (0.0-0.8) 10^3/u L Baso # (Auto) (0.0-0.1) 10^3/u L Nucleated RBC % (a uto) % Nucleated RBCs # /100WBC D-Dimer (0-0.59) ug/mIFE U Sodium (136-145) mmol/L Potassium (3.5-5.1) mmol/L Chloride (98-107) mmol/L Carbon Dioxide (22-29) mmol/L Anion Gap (5-19) BUN (6-20) mg/dL Creatinine (0.7-1.2) mg/dL GFR Calculation (90-130) mL/min Glucose (65-115) mg/dL Calculated Osmolal ity (285-295) mOsm/k g Calcium (8.5-10.5) mg/dL Total Bilirubin (0.15-1.2) mg/dL AST (0-40) U/L ALT (0-41) U/L Alkaline Phosphata se (40-130) IU/L Creatine Kinase (39-308) U/L Troponin T Baselin e 14 (0-15) ng/L Troponin T 120 Min [place] 15.27 H (0-15) ng/L Delta Troponin T 1.27 (0-10) ABS# NT-Pro-B Natriuret Pep (0-125) pg/mL Total Protein (6.6-8.7) g/dL Albumin (3.5-5.2) g/dL Globulin (1.3-4.6) g/dL Discharge Plan Discharge Patient Disposition: Home Clinical Impression: Chest pain Qualifiers: Chest pain type: unspecified Qualified Code(s): R07.9 - Chest pain, unspecified Condition: Stable Prescriptions: No Action isosorbide mononitrate 30 mg tablet extended release 24 hr 30 mg PO BID Qty: 60 RF: 6 metoprolol tartrate 50 mg tablet 25 mg PO BID 90 Days Qty: 90 RF: 3 lisinopril 20 mg tablet 5 mg PO QAM RF: 0 pantoprazole 20 mg tablet,delayed release (DR/EC) 20 mg PO QAM RF: 0 metformin 1,000 mg tablet 1,000 mg PO BEDTIME RF: 0 lovastatin 20 mg tablet 20 mg PO QAM RF: 0 pioglitazone 30 mg tablet 30 mg PO QAM RF: 0 glyburide 5 mg tablet See Rx Instructions .ROUTE .COMPLEX RF: 0 hydrochlorothiazide 25 mg tablet See Rx Instructions .ROUTE .COMPLEX RF: 0 Discharge Orders: Discharge ED (Routine); Ordered 06/04/20 Ordered By: Vasquez Lowery Referrals: Carlos Cameron MD [Primary Care Provider] - 4-7 days Princess Mederos MD [Physician] - 4-7 days Patient Instructions: Chest Pain (ED) Activity Restrictions/Additional Instructions: Return for return of chest pain or worsening pain, shortness of breath, dizziness, syncope or passing out, other concerning symptoms. Let your doctors know that you were here on Sunday. There may be further outpatient tests they would like to perform. Coding Level of Care Code ED Front Desk Attendant for Chg Fwd Exam Comprehensive
--- NOTE | 2020-06-04 21:54 | ECG_ITS ---
[facility] Test Date: 2020-06-04 Pat Name: Jake Weaver Department: Room: Gender: Male Surface Boss: : 1970 Requested By: Vasquez Wilson Order Number: [id number] Abelardo MD: Princess Mederos M.D. Measurements Intervals [place] Rate: 70 P: 40 [place]: 171 QRS: 60 QRSD: 102 T: -21 QT: 373 QTc: 402 Interpretive Statements SINUS RHYTHM NONSPECIFIC T-WAVE ABNORMALITY Compared to ECG 06/04/2020 19:08:01 T-wave abnormality now present Electronically Signed On 06-05-2020 11:23:31 FOOT MITER OPERATOR by Princess Mederos M.D. [id number]
[2020-06-04 22:08] VITALS: BP 131/75; PULSE 88; RESP 27; O2SAT 95
[2020-06-04 22:35] LABS: Troponin 5 2HR 15.27 ng/L (0-15); Troponin 5 2HR Delta 1.27 ABS# (0-10)
[2020-06-04] MEDS: ketorolac 30 mg/mL INJ IVP (22:55)
[2020-06-04 22:58] VITALS: BP 138/75; PULSE 77; RESP 22; O2SAT 94
[2020-06-04 23:30] VITALS: BP 121/71; PULSE 78; RESP 23; O2SAT 95
== END 2020-06-04 23:30 | disposition home or self-care (01) ==
PROVIDERS: Emergency Provider Emergency Medicine; PCP Family Medicine
DX: R07.9 Chest pain, unspecified (principal); Z79.84 Long term (current) use of oral hypoglycemic drugs; E11.9 Type 2 diabetes mellitus without complications; I10 Essential (primary) hypertension
CPT/HCPCS: 71045; 80053; 82550; 83880; 84484; 85025; 85378; 93005; 96374; 96375; 96376; 99284; J1885; J2270; J2405

== ENCOUNTER → 2020-10-17 18:34 | Outpatient (BNVA) | payer BC, SELFPAY | PROVIDERS: PCP Family Medicine; Visit Provider Nurse Practitioner | DX: Z20.822 Contact with and (suspected) exposure to COVID-19 (principal) | CPT/HCPCS: 87635 ==

== ENCOUNTER 2021-05-18 10:22 | Emergency (ER) | payer BC, SELFPAY ==
--- NOTE | 2021-05-18 10:38 | CT_ITS ---
WS: [id number] CT HEAD NONCONTRAST HISTORY: LEFT SIDED NUMBNESS TECHNIQUE: Contiguous axial imaging performed through the brain in 2.5 mm imaging. Bone and soft tiss ue windows. Sagittal and coronal reformats reviewed. All CT scans at [facility] use at least one of these dose optimization techniques: automated exposure control; mA and/or kV adjustment per pa tient size (includes targeted exams where dose is matched to clinical indication); or iterative recon struction. DLP: 962.49 mGy-cm. COMPARISON: None available. No acute intracranial hemorrhage, midline shift or mass effect. No atrophy or prior infarcts or herniation. Ventricles: Normal size with no hydrocephalus. Increased density in the RIGHT distal M1 and M2 segments. Highly suspicious for thrombus in the middl e cerebral artery. Paranasal sinuses: As visualized are clear. Mastoid air cells: Well pneumatized. Calvarium and scalp: Skull is intact with no soft tissue edema or swelling. CT/CT head wo con* [id number] IMPRESSION: 1. No acute intracranial hemorrhage or edema. 2. Increased density in the RIGHT M1 and M2 segments. Suspicious for thrombus. Recommend CT angiogram [place] of [place]. Notified Bobby Flores DO at 05/18/2021 10:48 AM.
[2021-05-18 10:39] VITALS: BP 140/86; PULSE 76; RESP 14; TEMP 36.9; O2SAT 94; BMI 40.7
--- NOTE | 2021-05-18 10:46 | CT_ITS ---
WS: [id number] CT ANGIOGRAM CEREBRAL AND CAROTID ARTERIES HISTORY: L sided weakness TECHNIQUE: CT angiogram is performed of the carotid and cerebral arteries. During arterial injection imaging is obtained from the skull vertex to the aortic arch in 1.25 mm imaging. Coronal and sagittal reformats are submitted. Additional multi planar reformats of the carotid and cerebral arteries are submitted, MIP imaging also reviewed. NASCET criteria utilized. All CT scans at [facility] at least one of these dose optimization techniques: automated exposure control; mA and/or kV adjust ment per patient size (includes targeted exams where dose is matched to clinical indication); or iter ative reconstruction. CONTRAST: Omnipaque 350; 95 mL IV. DLP: 2718.08 mGy.cm COMPARISON: None available. Carotid Angiogram: Right carotid: Common carotid artery: Arises normally from the innominate artery. No significant plaque or stenosis. Internal carotid artery: There is a small amount of circumferential soft plaque. No stenosis. External carotid artery: Patent. Left carotid: Common carotid artery: Arises normally from the aorta. No significant plaque or stenosis. Artifact an d obscuration of the mid LEFT common carotid artery. Internal carotid artery: Small amount of calcified plaque and intimal thickening in the distal common carotid artery extending to the bifurcation. No significant stenosis. External carotid artery: Patent. Right vertebral artery: Unremarkable. Left vertebral artery: Arises from the aortic arch. Small caliber LEFT vertebral artery but it is pat ent. Subclavian arteries: No stenosis or significant abnormality. Upper thorax: Normal. Thyroid gland: Normal. Osseous structures: Unremarkable. CEREBRAL ANGIOGRAM: Intracranial vertebral arteries: Normal with no significant atherosclerosis. Basilar artery: No significant stenosis or occlusion. No aneurysm. Intracranial Internal carotid arteries: Small amount calcification in the distal ICA. Middle cerebral arteries: Middle cerebral arteries are widely patent. No thrombus or occlusion is esthela ntified. For a slight paucity of vessels on the LEFT beginning in the LEFT M2 territory. Anterior cerebral arteries and ACOM: Dominant RIGHT A1 segment. LEFT A1 segment is very hypoplastic o r absent. A2 segments are normal. Posterior cerebral arteries and PCOM's: Normal. Dural venous sinuses are normally enhancing. Mastoid air cells: Normal. Paranasal sinuses: Normal. Calvarium: Normal. CT/CT angio headneck* [id number] IMPRESSION: 1. Mild atherosclerotic plaque extracranial carotid arteries. No high-grade st enosis. Slightly greater plaque distribution on the LEFT. 2. No thrombus in the RIGHT M1 or M2 segments. 3. Hypoplastic or absent LEFT A1 segment. 4. No aneurysm. Notified Bobby Flores DO at 05/18/2021 11:45 AM.
--- NOTE | 2021-05-18 10:50 | XR_ITS ---
WS: [id number] CHEST XRAY TECHNIQUE: Portable chest. CLINICAL INFORMATION: chest pain COMPARISON: June 04, 2020 FINDINGS: Heart: Cardiomegaly. Lungs: Lungs are clear. No consolidation or pleural effusion. Bones: Normal visualized bony structures. XR/XR chest 1V portable [id number] IMPRESSION: Cardiomegaly. Chest otherwise normal.
--- NOTE | 2021-05-18 10:50 | ECG_ITS ---
[facility] Test Date: 2021-05-18 Pat Name: Jake Weaver Department: Room: Gender: Male Printing Services Coordinator: : 1970 Requested By: Bobby Gomez Order Number: [id number] Abelardo MD: Princess Mederos M.D. Measurements Intervals [place] Rate: 72 P: 16 [place]: 176 QRS: 3 QRSD: 105 T: -19 QT: 373 QTc: 408 Interpretive Statements SINUS RHYTHM Compared to ECG 05/18/2021 10:47:53 No significant changes Electronically Signed On 05-18-2021 19:26:02 HOTEL ATTENDANT by Princess Mederos M.D. [id number]
--- NOTE | 2021-05-18 10:51 | W.ED.CHESTPA ---
HPI - Chest Pain General: Chief Complaint: Chest Pain Stated Complaint: Possible Stroke Time Seen by Provider: 05/18/21 10:36 History of Present Illness: 50-year-old male presents emergency room with left-sided facial numbness and weakness and some left arm and leg weakness he stated began last night around 8 or 9:00 it is mostly resolved. Attendant with that he had some chest pain that radiated into his left arm. At its worst he reports the pain was a 7 of the 10 accompanied with some shortness of breath but no diaphoresis now it is about a 3 out of 10. He has previously had cardiac work-up and was thought to have his coronary artery spasm. He is also states he had a stroke in 2004. He did take nitro last evening with the chest pain and also took another one at 3 AM this morning both of which improved his chest discomfort. MD complaint: chest pain Onset (ago): day(s) (1) Timing of current episode: episodic Prior episodes: No Onset: during rest Pain location: epigastric Pain radiation: none Quality: aching and heaviness Relieving factors: nothing Exacerbating factors: nothing Associated symptoms: Deny abdominal pain, diaphoresis, dyspnea, fever(s), leg edema, nausea, palpitations, sense of impending doom, syncope or vomiting Treatment prior to arrival: none Review of Systems Const: Denies: fever(s) or diaphoresis ENMT: Denies: throat pain, ear or mastoid pain, nasal discharge or nasal congestion Card: Denies: palpitations or syncope Resp: Denies: dyspnea GI: Denies: abdominal pain, nausea or vomiting : Denies: flank pain, dysuria, urinary frequency or urinary urgency Skin/Breast: Denies: rash or pruritus PFSH ED PFSH: Medical History Diabetes Hypercholesteremia Hypertension Osteoarthritis of knees, bilateral Osteoarthritis of left ankle Family History Mother No problems noted. Father No problems noted. Social History Smoking and tobacco status: never smoked Alcohol intake: former Physical Exam Const: COMMON NORMALS: no acute distress GENERAL APPEARANCE: cooperative and comfortable ORIENTATION/CONSCIOUSNESS: Yes awake, Yes oriented to person, Yes oriented to place and Yes oriented to time HENMT: COMMON NORMALS: normocephalic, atraumatic and hearing grossly normal bilaterally HEAD & SCALP: normocephalic and atraumatic Neck/C-Spine: COMMON NORMALS: no JVD Resp: COMMON NORMALS: normal respiratory effort, No retractions, No use of accessory muscles and clear to auscultation bilaterally AUSCULTATION: clear to auscultation bilaterally Cardio: COMMON NORMALS: no JVD, regular rate, regular rhythm and No murmurs present (Cardio) RATE: regular rate RHYTHM: regular rhythm GI: COMMON NORMALS: Soft to palpation and No hepatosplenomegaly present AUSCULTATION: Yes normoactive bowel sounds PALPATION: Yes Soft to palpation, No Tenderness to palpation present (GI), No Guarding due to palpation present (GI) and Yes No hepatosplenomegaly present Extremity: COMMON NORMALS: normal to inspection, capillary refill normal, no clubbing, cyanosis or edema, no calf tenderness and no pedal edema Neuro: SENSORIUM/ORIENTATION: Yes oriented to person, Yes oriented to place and Yes oriented to time Skin: COMMON NORMALS: no rashes or lesions noted GENERAL SKIN EXAM: no rashes or lesions noted Course Vital Signs: Vital signs: Vital Signs Temperature 98.0 F 05/18/21 15:02 Pulse Rate 75 05/18/21 15:30 Respiratory Rate 15 05/18/21 15:30 Blood Pressure 113/78 05/18/21 15:30 Pulse Oximetry 94 05/18/21 15:02 MDM - Chest Pain Medical Decision Making Patient is complaining of left-sided weakness and facial numbness this time he has no neurologic findings NIH score is 0. He had a positive stress test in February 2019 which was followed the following day by an angiogram which was for the most part unremarkable. Discussed the case with Dr. Soni is on-call for cardiology and he reviewed the records as well. He does not feel the patient requires admission at this time. Add baby aspirin daily continue Imdur and other medications previously prescribed no follow-up with Dr. Cohen tomorrow in the office. Medical Records I reviewed the patient's medical records. Lab Data I reviewed the patient's lab results. : 05/18/21 11:00 05/18/21 11:[address] 05/18/21 10:38 IMPRESSION: 1. No acute intracranial hemorrhage or edema. 2. Increased density in the RIGHT M1 and M2 segments. Suspicious for thrombus. Recommend CT angiogram [place] of [place]. Notified Bobby Flores DO at 05/18/2021 10:48 AM. Head/Neck CTA 05/18/21 10:46 IMPRESSION: 1. Mild atherosclerotic plaque extracranial carotid arteries. No high-grade stenosis. Slightly greater plaque distribution on the LEFT. 2. No thrombus in the RIGHT M1 or M2 segments. 3. Hypoplastic or absent LEFT A1 segment. 4. No aneurysm. Notified Bobby Flores DO at 05/18/2021 11:45 AM. Chest X-Ray 05/18/21 10:50 IMPRESSION: Cardiomegaly. Chest otherwise normal. Laboratory Results WBC 8.9 10^3/uL (4.0-10.0) 05/18/21 11:00 RBC 4.96 10^6/uL (4.1-5.3) 05/18/21 11:00 Hgb 14.3 g/dL (11.7-16.6) 05/18/21 11:00 Hct 41.9 % (42.0-52.0) L 05/18/21 11:00 MCV 84.5 fl (80-94) 05/18/21 11:00 MCH 28.8 pg (28.0-34.0) 05/18/21 11:00 MCHC 34.1 g/dL (30.0-36.0) 05/18/21 11:00 RDW 12.7 % (12.1-15.1) 05/18/21 11:00 Plt Count 136 10^3/cmm (130-400) 05/18/21 11:00 MPV 11.5 fL (7.4-10.4) H 05/18/21 11:00 Neut % (Auto) 63.8 % 05/18/21 11:00 Lymph % (Auto) 26.4 % 05/18/21 11:00 [place] % (Auto) 5.1 % 05/18/21 11:00 Eos % (Auto) 3.7 % 05/18/21 11:00 Baso % (Auto) 0.7 % 05/18/21 11:00 Neut # (Auto) 5.64 10^3/uL (1.8-7.7) 05/18/21 11:00 Lymph # (Auto) 2.3 10^3/uL (0.8-4.8) 05/18/21 11:00 [place] # (Auto) 0.5 10^3/uL (0.2-0.9) 05/18/21 11:00 Eos # (Auto) 0.3 10^3/uL (0.0-0.8) 05/18/21 11:00 Baso # (Auto) 0.1 10^3/uL (0.0-0.1) 05/18/21 11:00 Nucleated RBC % (auto) 0 % 05/18/21 11:00 Nucleated RBCs # 0.0 /100WBC 05/18/21 11:00 PT 13.80 SECONDS (12.1-14.9) 05/18/21 11:30 INR 1.03 (0.8-1.2) 05/18/21 11:30 APTT 25.9 SECONDS (23.9-36.7) 05/18/21 11:30 Sodium 135 mmol/L (136-145) L 05/18/21 11:49 Potassium 3.7 mmol/L (3.5-5.1) 05/18/21 11:49 Chloride 102 mmol/L (98-107) 05/18/21 11:49 Carbon Dioxide 19 mmol/L (22-29) L 05/18/21 11:49 Anion Gap 17.7 (5-19) 05/18/21 11:49 BUN 10 mg/dL (6-20) 05/18/21 11:49 Creatinine 0.6 mg/dL (0.7-1.2) L 05/18/21 11:49 GFR Calculation 143.2 mL/min (90-130) H 05/18/21 11:49 Glucose 135 mg/dL (65-115) H 05/18/21 11:49 Estimat Average Glucose 163 05/19/21 11:49 Hemoglobin A1c 7.3 % (4.0-6.0) H 05/19/21 11:49 Calculated Osmolality 281 mOsm/kg (285-295) L 05/18/21 11:49 Calcium 9.6 mg/dL (8.5-10.5) 05/18/21 11:49 Total Bilirubin 0.3 mg/dL (0.15-1.2) 05/18/21 11:49 AST 16 U/L (0-40) 05/18/21 11:49 ALT 25 U/L (0-41) 05/18/21 11:49 Alkaline Phosphatase 61 IU/L (40-130) 05/18/21 11:49 Creatine Kinase 85 U/L (39-308) 05/18/21 11:49 Troponin T Baseline 7 ng/L (0-15) 05/18/21 11:49 Troponin T 120 Minute 10.49 ng/L (0-15) 05/18/21 13:49 Delta Troponin T 3.49 ABS# (0-10) 05/18/21 13:49 Total Protein 6.7 g/dL (6.6-8.7) 05/18/21 11:49 Albumin 4.5 g/dL (3.5-5.2) 05/18/21 11:49 Globulin 2.2 g/dL (1.3-4.6) 05/18/21 11:49 Triglycerides 107 mg/dL (0-150) 05/19/21 09:00 Cholesterol 129 mg/dL (0-200) 05/19/21 09:00 LDL Cholesterol, Calc 66 mg/dL (50-129) 05/19/21 09:00 HDL Cholesterol 42 mg/dL (60-100) L 05/19/21 09:00 LDL/HDL Ratio 1.57 RATIO (0.00-3.22) 05/19/21 09:00 Cholesterol/HDL Ratio 3.07 mg/dL (1.0-5.00) 05/19/21 09:00 Discharge Plan Discharge Patient Disposition: Home Clinical Impression: Atypical chest pain, Diabetes, Hypertension, Hypercholesteremia Condition: Stable Prescriptions: New aspirin 81 mg tablet,delayed release (DR/EC) 81 mg PO DAILY Qty: 30 0RF No Action glyburide 5 mg tablet 5 mg PO BID 90 Days Qty: 180 3RF Rx Instructions: 5 mg PO twice a day; metoprolol tartrate 50 mg tablet 25 mg PO BID 90 Days Qty: 90 3RF metformin 1,000 mg tablet 1,000 mg PO BID 90 Days Qty: 180 3RF lovastatin 20 mg tablet 20 mg PO QAM 90 Days Qty: 90 3RF isosorbide mononitrate 30 mg tablet extended release 24 hr 30 mg PO BID Qty: 60 6RF pioglitazone 30 mg tablet 30 mg PO QAM 0RF lisinopril 20 mg tablet 10 mg PO QAM 0RF pantoprazole 20 mg tablet,delayed release (DR/EC) 20 mg PO DAILY 0RF hydrochlorothiazide 25 mg tablet 12.5 mg PO DAILY 0RF Discharge Orders: Discharge ED (Routine); Ordered 05/18/21 Ordered By: Bobby Flores Referrals: Carlos Cameron MD [Primary Care Provider] - Discharge Diet: Usual diet Discharge Activity: Limit activity as instructed Patient Instructions: Opioid Safety Activity Restrictions/Additional Instructions: Avoid exertional activities. Follow-up with Dr. Mederos's office within the next 10 days Coding Level of Care Code ED Ammonia Nitrate Operator for Kimberly Cuellar NIH stroke score NIHSS Level Of Consciousness - 1a: 0 Level Of Consciousness Questions - 1b: Both Correct Level Of Consciousness Commands - 1c: Both Correct Best Gaze - 2: Normal Visual [place] - 3: No Visual Loss Facial Palsy - 4: Normal Motor Arm Right - 5: No Drift Motor Arm Left - 5: No Drift Motor Leg Right - 6: No Drift Motor Leg Left - 6: Drift Limb Ataxia - 7: Absent Sensory - 8: Normal Best Language - 9: No Aphasia Dysarthia - 10: Normal Extinction And Inattention - 11: 0 Score Total Score: 1
[2021-05-18] MEDS: iohexol 350 mg/mL 100 mL Btl IV (11:10)
[2021-05-18 11:13] LABS: Basophils # 0.1 10^3/uL (0.0-0.1); Basophils % 0.7 %; Eosinophils # 0.3 10^3/uL (0.0-0.8); Eosinophils % 3.7 %; Hematocrit 41.9 % (42.0-52.0); Hemoglobin 14.3 g/dL (11.7-16.6); Lymphocytes # 2.3 10^3/uL (0.8-4.8); Lymphocytes % 26.4 %; Mean Corpuscular HGB Conc 34.1 g/dL (30.0-36.0); Mean Corpuscular Hemoglobin 28.8 pg (28.0-34.0); Mean Corpuscular Volume 84.5 fl (80-94); Mean Platelet Volume 11.5 fL (7.4-10.4); Monocytes # 0.5 10^3/uL (0.2-0.9); Monocytes % 5.1 %; Neutrophils # 5.64 10^3/uL (1.8-7.7); Neutrophils % 63.8 %; Nucleated Red Blood Cells % 0 %; Platelet Count 136 10^3/cmm (130-400); Red Blood Count 4.96 10^6/uL (4.1-5.3); Red Cell Distribution Width 12.7 % (12.1-15.1); White Blood Count 8.9 10^3/uL (4.0-10.0)
[2021-05-18 12:15] LABS: INR 1.03 (0.8-1.2)
[2021-05-18 12:16] LABS: Partial Thromboplastin Time 25.9 SECONDS (23.9-36.7)
[2021-05-18 12:28] LABS: Troponin(5th) Baseline 7 ng/L (0-15)
[2021-05-18 12:29] LABS: Alanine Aminotransferase 25 U/L (0-41); Albumin Level 4.5 g/dL (3.5-5.2); Alkaline Phosphatase 61 IU/L (40-130); Anion Gap 17.7 (5-19); Aspartate Amino Transferase 16 U/L (0-40); Blood Urea Nitrogen 10 mg/dL (6-20); Calcium 9.6 mg/dL (8.5-10.5); Carbon Dioxide 19 mmol/L (22-29); Chloride 102 mmol/L (98-107); Creatine Phosphokinase 85 U/L (39-308); Globulin 2.2 g/dL (1.3-4.6); Glomerular Filtration Rate 143.2 mL/min (90-130); Glucose 135 mg/dL (65-115); Osmolality Calculated 281 mOsm/kg (285-295); Potassium 3.7 mmol/L (3.5-5.1); Sodium 135 mmol/L (136-145); Total Bilirubin 0.3 mg/dL (0.15-1.2); Total Protein 6.7 g/dL (6.6-8.7)
[2021-05-18 12:46] VITALS: BP 142/87; PULSE 77; RESP 20; TEMP 36.8; O2SAT 93
--- NOTE | 2021-05-18 12:50 | ECG_ITS ---
[facility] Test Date: 2021-05-18 Pat Name: Jake Weaver Department: Room: Gender: Male Bilingual Patient Support Caseworker: : 1970 Requested By: Bobby Gomez Order Number: [id number] Abelardo MD: Princess Mederos M.D. Measurements Intervals [place] Rate: 77 P: 25 [place]: 175 QRS: 17 QRSD: 101 T: -16 QT: 361 QTc: 409 Interpretive Statements SINUS RHYTHM Compared to ECG 06/04/2020 20:12:44 T-wave abnormality no longer present Electronically Signed On 05-18-2021 19:44:19 DIRECTOR OF CONSUMER MARKETING by Princess Mederos M.D. [id number]
[2021-05-18] MEDS: lidocaine 2% viscous 15 ML, aluminum-mag hydrox-simethicon 30 ML, sucralfate oral liq 1 GM PO (14:10)
[2021-05-18 14:44] LABS: Troponin 5 2HR 10.49 ng/L (0-15)
[2021-05-18 15:02] VITALS: BP 115/74; PULSE 80; RESP 16; TEMP 36.7; O2SAT 94
[2021-05-18 15:24] LABS: Troponin 5 2HR Delta 3.49 ABS# (0-10)
[2021-05-18 15:30] VITALS: BP 113/78; PULSE 75; RESP 15
--- NOTE | 2021-05-18 16:50 | ECG_ITS ---
[facility] Test Date: 2021-05-18 Pat Name: Jake Weaver Department: Room: Gender: Male Vice President Risk Management: : 1970 Requested By: Bobby Gomez Order Number: [id number] Abelardo MD: Princess Mederos M.D. Measurements Intervals [place] Rate: 76 P: 19 WA: 182 QRS: 8 QRSD: 102 T: -20 QT: 362 QTc: 409 Interpretive Statements SINUS RHYTHM Compared to ECG 05/18/2021 12:10:59 No significant changes Electronically Signed On 05-18-2021 19:38:30 GRINDING WHEEL OPERATOR by Princess Mederos M.D. [id number]
--- NOTE | 2021-05-19 14:35 | DCPLANNER ---
Addendum entered by Gloria Mason 06/08/21 14:39: Patient did attend the follow up appointment with Dr. Cameron on 05.23.21. amusement centre manager was notified that patients insurance will not pay for a stress test from the ER, patient can follow up with primary care. amusement centre manager did call Dr. Horton nurse, left her a voicemail regarding this. Original Note: amusement centre manager had message to schedule an outpatient stress test for patient, a follow up appointment with [facility]. Patient sees Dr. Cameron for primary care. amusement centre manager called Dr. Horton nurse, informed her that patient was seen in the ER and the ED physician wanted patient to have a stress test and a follow up with [facility]. Patient was seen by Dr. Mederos today at the [facility]. A follow up appointment was scheduled for patient for Sunday, May 23, 2021 at 1:[address] Cameron. The nurse for Dr. Cameron will call patient with appointment information. amusement centre manager will fax signed order for stress test to centralized scheduling, who will call patient with appointment information.
[2021-05-19 15:24] LABS: Chol HDL Ratio 3.07 mg/dL (1.0-5.00); Cholesterol 129 mg/dL (0-200); HDL Cholesterol 42 mg/dL (60-100); LDL Cholesterol Calculated 66 mg/dL (50-129); LDL HDL Ratio 1.57 RATIO (0.00-3.22); Triglycerides 107 mg/dL (0-150)
[2021-05-19 15:38] LABS: Estmated Average Glucose 163; Hemoglobin A1C 7.3 % (4.0-6.0)
== END 2021-05-18 15:31 | disposition home or self-care (01) ==
PROVIDERS: Emergency Provider Family Medicine; PCP Family Medicine
DX: R07.89 Other chest pain (principal); E11.9 Type 2 diabetes mellitus without complications; I10 Essential (primary) hypertension; E78.00 Pure hypercholesterolemia, unspecified; Z79.84 Long term (current) use of oral hypoglycemic drugs
CPT/HCPCS: 36415; 70450; 70496; 70498; 71045; 80053; 80061; 82550; 83036; 84484; 85025; 85610; 85730; 93005; 99283; Q9967

== ENCOUNTER → 2021-09-07 12:18 | Outpatient (BNVA) | payer BC, SELFPAY | PROVIDERS: PCP Family Medicine; Visit Provider Family Medicine | DX: E78.00 Pure hypercholesterolemia, unspecified (principal); I10 Essential (primary) hypertension; E11.65 Type 2 diabetes mellitus with hyperglycemia; M17.2 Bilateral post-traumatic osteoarthritis of knee; N52.9 Male erectile dysfunction, unspecified | CPT/HCPCS: 80053; 80061; 83036 ==

== ENCOUNTER 2021-10-11 06:00 | Outpatient (RCR) | payer BC, SELFPAY | END 2021-11-06 23:59 | disposition home or self-care (01) | LOC: MPT 06:00 | PROVIDERS: PCP Family Medicine; Referring Provider Orthopaedic Surgery; Visit Provider Orthopaedic Surgery | DX: Z47.1 Aftercare following joint replacement surgery (principal); Z96.651 Presence of right artificial knee joint | CPT/HCPCS: 97110; 97112; 97140; 97161; G0283 ==

== ENCOUNTER → 2021-10-18 18:03 | Outpatient (BNVA) | payer BC, SELFPAY | PROVIDERS: PCP Family Medicine; Visit Provider Emergency Medicine | DX: M19.072 Primary osteoarthritis, left ankle and foot (principal); M25.571 Pain in right ankle and joints of right foot; M10.9 Gout, unspecified | CPT/HCPCS: 73610 ==

== ENCOUNTER 2021-10-19 17:24 | Emergency (ER) | payer BC, SELFPAY ==
--- NOTE | 2021-10-19 18:01 | XRR_ITS ---
PROCEDURE INFORMATION: Exam: XR Right Ankle Exam date and time: 10/19/2021 6:45 PM Age: 51 years old Clinical indication: Pain; Right; Patient HX: RT. Ankle swelling TECHNIQUE: Imaging protocol: Radiologic exam of the Right ankle. Views: 3 or more views. COMPARISON: CR XR ankle RT min 3V* [id number] 10/18/2021 6:11 PM FINDINGS: Bones/joints: Osseous structures are intact. Negative for fracture. Joint spaces are preserved. Redemonstrated corticated bone fragments lateral to the ankle, not significantly changed. Soft tissues: Soft tissue swelling noted around the ankle. XR/XR ankle RT min 3V* [id number] IMPRESSION: No acute findings.
[2021-10-19 18:03] VITALS: BP 111/72; PULSE 85; RESP 16; TEMP 36.7; O2SAT 98
--- NOTE | 2021-10-19 21:10 | W.ED.EXTPRO ---
Documented by User: David Badillo MD 10/31/21 00:00 HPI - Extremity Problem General: Chief complaint: Extremity Problem,Nontraumatic Stated complaint: Right ankle swelling Time Seen by Provider: 10/19/21 21:10 History of Present Illness: Mr. Weaver is a 51-year-old gentleman with history of hypertension, hyperlipidemia, diabetes who presents to the emergency department due to ankle pain. He had right total knee replacement on 09/20 and had been doing well. Few days ago he developed nontraumatic onset of ankle pain and swelling. He endorses moderate to severe intensity symptoms that are worse with range of motion and ambulation. He has noticed some swelling more on the lateral aspect though feels overall that the joint is swollen. He denies pain or swelling in his knee. Denies signs of systemic illness. He was seen and started on indomethacin yesterday for concern of gout however after discussion with his operating surgeon at [facility] he was referred for further evaluation. Patient has been on aspirin in the postoperative state for DVT prophylaxis reportedly. Onset (ago): day(s) Location: right and lower extremity Quality: aching and sharp Exacerbating factors: range of motion, weight bearing and palpation Review of Systems General: Reports: 10 or more systems reviewed and unremarkable except in HPI and below PFSH ED PFSH: Medical History (Updated 10/27/21 @ 00:00 by ) Diabetes Hypercholesteremia Hypertension Osteoarthritis of knees, bilateral Osteoarthritis of left ankle Family History Mother No problems noted. Father No problems noted. Social History Smoking and tobacco status: never smoked Alcohol intake: former Physical Exam Const: COMMON NORMALS: alert GENERAL APPEARANCE: cooperative and well developed HENMT: COMMON NORMALS: normocephalic and atraumatic HEAD & SCALP: normocephalic and atraumatic Eye: COMMON NORMALS: conjunctivae normal CONJUNCTIVA: Yes conjunctivae normal SCLERA: sclerae normal Neck/C-Spine: COMMON NORMALS: supple GENERAL: Yes trachea midline Resp: COMMON NORMALS: normal respiratory effort EFFORT & INSPECTION: Yes able to speak in complete sentences Cardio: COMMON NORMALS: regular rate and regular rhythm RATE: regular rate RHYTHM: regular rhythm GI: COMMON NORMALS: Soft to palpation PALPATION: Yes Soft to palpation and No Tenderness to palpation present (GI) PERCUSSION: normal to percussion Extremity: NARRATIVE EXTREMITY EXAM: Right knee with postsurgical changes, surgical incisions appear well-healing with minimal scabbing residual. Right ankle with minimal posterior lateral erythema, there is edema compared to contralateral side which appears circumferential. Distal CMS is intact. No red streaking up or down leg. Mild limited range of motion secondary to pain. GENERAL: Yes normal exam except as noted and Yes edema Neuro: COMMON NORMALS: moves all extremities SENSORIUM/ORIENTATION: Yes alert and No Orientation impaired Psych: COMMON NORMALS: mental status grossly normal and Normal thought process present THOUGHT PROCESS: Normal thought process present Course ED course: - Patient was seen and evaluated by me at bedside - Patient placed on cardiac monitors, IV access obtained - Initial evaluation notable for exam as above, nontoxic appearance - Labs and xrays personally interpreted by me - Analgesia given - Labs notable for no leukocytosis. CRP is only minimally elevated at 12 with negative ESR. - Imaging notable for - Handed off to Dr. Rojas pending ultrasound read no acute bony abnormality on x-ray Note: Click bubbles or prepopulated carl in note writing are used for assistance with data collection and billing and are inherently more limited than narrative and other text portions of this note. Please use narrative for additional clinical history and defer to narrative/free test for any case of contradictory information. If information appears in only free text or click bubble it should be considered present or absent as reported. Please contact note field underwriter for clarifications of clinical information or contradictory information. MDM is a brief summary, contradictory or erroneous seeming information should be clarified and full note should be reviewed. Vital Signs: Vital signs: Vital Signs Temperature 98.0 F 10/20/21 00:05 Pulse Rate 80 10/20/21 00:05 Respiratory Rate 16 10/20/21 00:05 Blood Pressure 120/76 10/20/21 00:05 Pulse Oximetry 97 10/20/21 00:05 MDM - Extremity (Nontraumatic) Medical Decision Making 51-year-old gentleman presenting with postoperative increased pain and some. Patient care handed off to Dr. Rojas pending completion of ED evaluation. Patient presents with ankle pain he has no signs of septic joint blood work is normal ultrasound here showed no signs of DVT patient is stable for discharge he has pain meds at home he is to ice and rest as well he is to return if worsening and he is to follow-up with PCP Medical Records I reviewed the patient's medical records. Lab Data I reviewed the patient's lab results. : 10/19/21 21:25 10/19/21 21:25 Radiology Impressions Ankle X-Ray 10/19/21 18:01 IMPRESSION: No acute findings. Venous Duplex 10/19/21 21:19 IMPRESSION: No evidence of deep vein thrombosis. Laboratory Results WBC 7.4 10^3/uL (4.0-10.0) 10/19/21 21: RBC 4.59 10^6/uL (4.1-5.3) 10/19/21: Hgb 13.1 g/dL (11.7-16.6) 10/19/21: Hct 38.2 % (42.0-52.0) L 10/19/21: MCV 83.2 fl (80-94) 10/19/21 21: MCH 28.5 pg (28.0-34.0) 10/19/21 21: MCHC 34.3 g/dL (30.0-36.0) 10/19/21: RDW 12.6 % (12.1-15.1) 10/19/21: Plt Count 153 10^3/cmm (130-400) 10/19/21 21: MPV 10.2 fL (7.4-10.4) 10/19/21 21: Neut % (Auto) 50.2 % 10/19/21: Lymph % (Auto) 36.0 % 10/19/21 21: [place] % (Auto) 8.4 % 10/19/21: Eos % (Auto) 4.7 % 10/19/21: Baso % (Auto) 0.4 % 10/19/21: Neut # (Auto) 3.70 10^3/uL (1.8-7.7) 10/19/21: Lymph # (Auto) 2.7 10^3/uL (0.8-4.8) 10/19/21: [place] # (Auto) 0.6 10^3/uL (0.2-0.9) 10/19/21 21:25 Eos # (Auto) 0.4 10^3/uL (0.0-0.8) 10/19/21 21:25 Baso # (Auto) 0.0 10^3/uL (0.0-0.1) 10/19/21 21:25 Nucleated RBC % (auto) 0 % 10/19/21 21:25 Nucleated RBCs # 0.0 /100WBC 10/19/21 21:25 ESR 8 mm/hr (0-10) 10/19/21 21:25 Sodium 140 mmol/L (136-145) 10/19/21 21:25 Potassium 4.0 mmol/L (3.5-5.1) 10/19/21 21:25 Chloride 101 mmol/L (98-107) 10/19/21 21:25 Carbon Dioxide 25 mmol/L (22-29) 10/19/21 21:25 Anion Gap 18.0 (5-19) 10/19/21 21:25 BUN 17 mg/dL (6-20) 10/19/21 21:25 Creatinine 0.6 mg/dL (0.7-1.2) L 10/19/21 21:25 GFR Calculation 142.6 mL/min (90-130) H 10/19/21 21:25 Glucose 138 mg/dL (65-115) H 10/19/21 21:25 Calculated Osmolality 294 mOsm/kg (285-295) 10/19/21 21:25 Calcium 9.7 mg/dL (8.5-10.5) 10/19/21 21:25 C-Reactive Protein 12.0 mg/L (0.0-4.9) H 10/19/21 21:25 Discharge Plan Discharge Patient Disposition: Home Clinical Impression: Ankle pain, Joint swelling Condition: Stable Prescriptions: No Action glyburide 5 mg tablet 5 mg PO BID 90 Days Qty: 180 3RF Rx Instructions: 5 mg PO twice a day; (DME) FreeStyle Roberto 2 Sensor Kit See Rx Instructions .Route Qty: 1 8RF Rx Instructions: As directed to use with Freestyle 2 reading indomethacin 50 mg capsule 50 mg PO QID PRN (Reason: pain) Qty: 20 0RF Rx Instructions: administer with food or milk metformin 1,000 mg tablet 1,000 mg PO BID 90 Days Qty: 180 3RF pioglitazone 30 mg tablet 30 mg PO QAM 90 Days Qty: 90 1RF metoprolol tartrate 50 mg tablet 25 mg PO BID 90 Days Qty: 90 3RF lovastatin 20 mg tablet 20 mg PO QAM 90 Days Qty: 90 3RF (DME) FreeStyle Roberto 2 Backus Misc See Rx Instructions .Route Qty: 1 0RF Rx Instructions: As directed with freestyle roberto 2 sensor hydrochlorothiazide 25 mg tablet 12.5 mg PO DAILY Qty: 90 3RF lisinopril 20 mg tablet 20 mg PO QAM 90 Days Qty: 90 1RF aspirin 81 mg tablet,delayed release (DR/EC) 81 mg PO DAILY Qty: 30 0RF Discharge Orders: Discharge ED (Routine); Ordered 10/19/21 Ordered By: Kya Rojas Referrals: Carlos Cameron MD [Primary Care Provider] - Discharge Diet: Usual diet Discharge Activity: Increase activity as tolerated Patient Instructions: Arthralgia (ED), Swollen Joint (ED), Opioid Safety Activity Restrictions/Additional Instructions: Thank you for visiting the emergency department. You were seen and evaluated for ankle pain and swelling. The exact cause of your symptoms is unclear. Please follow-up with your primary care provider and surgeon. You may use advs-jah-zynebwm treatments for discomfort however please do not exceed the daily recommended dosage and please keep in mind that many namebrand medications contain the same active ingredients. If using NSAIDs for more than 3 days please also take kaum-ejd-duouots PPI or H2 clifford for GI protection. If symptoms persist you may require repeat ultrasound in 1 week to further evaluate smaller calf veins. Please return to the emergency department for fevers, worsening or uncontrolled symptoms, or anything else that you are concerned about and feel needs emergency department evaluation. Coding Level of Care Code ED Wearing Apparel Presser for Chg Fwd Exam Comprehensive Documented by User: Kya Rojas MD 10/19/21 23:24 HPI - Extremity Problem General: Chief complaint: Extremity Problem,Nontraumatic Stated complaint: Right ankle swelling Time Seen by Provider: 10/19/21 21:10 [facility] ED PFSH: Medical History (Updated 10/27/21 @ 00:00 by ) Diabetes Hypercholesteremia Hypertension Osteoarthritis of knees, bilateral Osteoarthritis of left ankle Family History Mother No problems noted. Father No problems noted. Social History Smoking and tobacco status: never smoked Alcohol intake: former Course Vital Signs: Vital signs: Vital Signs Temperature 98.0 F 10/20/21 00:05 Pulse Rate 80 10/20/21 00:05 Respiratory Rate 16 10/20/21 00:05 Blood Pressure 120/76 10/20/21 00:05 Pulse Oximetry 97 10/20/21 00:05 MDM - Extremity (Nontraumatic) Medical Decision Making Patient presents with ankle pain he has no signs of septic joint blood work is normal ultrasound here showed no signs of DVT patient is stable for discharge he has pain meds at home he is to ice and rest as well he is to return if worsening and he is to follow-up with PCP Lab Data : 10/19/21 21:25 10/19/21 21:25 Radiology Impressions Ankle X-Ray 10/19/21 18:01 IMPRESSION: No acute findings. Venous Duplex 10/19/21 21:19 IMPRESSION: No evidence of deep vein thrombosis. Laboratory Results WBC 7.4 10^3/uL (4.0-10.0) 10/19/21 21:25 RBC 4.59 10^6/uL (4.1-5.3) 10/19/21 21:25 Hgb 13.1 g/dL (11.7-16.6) 10/19/21 21:25 Hct 38.2 % (42.0-52.0) L 10/19/21 21:25 MCV 83.2 fl (80-94) 10/19/21 21:25 MCH 28.5 pg (28.0-34.0) 10/19/21 21: MCHC 34.3 g/dL (30.0-36.0) 10/19/21 21:25 RDW 12.6 % (12.1-15.1) 10/19/21 21: Plt Count 153 10^3/cmm (130-400) 10/19/21 21: MPV 10.2 fL (7.4-10.4) 10/19/21 21:25 Neut % (Auto) 50.2 % 10/19/21 21: Lymph % (Auto) 36.0 % 10/19/21: [place] % (Auto) 8.4 % 10/19/21: Eos % (Auto) 4.7 % 10/19/21 21: Baso % (Auto) 0.4 % 10/19/21: Neut # (Auto) 3.70 10^3/uL (1.8-7.7) 10/19/21: Lymph # (Auto) 2.7 10^3/uL (0.8-4.8) 10/19/21: [place] # (Auto) 0.6 10^3/uL (0.2-0.9) 10/19/21: Eos # (Auto) 0.4 10^3/uL (0.0-0.8) 10/19/21: Baso # (Auto) 0.0 10^3/uL (0.0-0.1) 10/19/21: Nucleated RBC % (auto) 0 % 10/19/21: Nucleated RBCs # 0.0 /100WBC 10/19/21: ESR 8 mm/hr (0-10) 10/19/21 21: Sodium 140 mmol/L (136-145) 10/19/21 21: Potassium 4.0 mmol/L (3.5-5.1) 10/19/21: Chloride 101 mmol/L (98-107) 10/19/21: Carbon Dioxide 25 mmol/L (22-29) 10/19/21: Anion Gap 18.0 (5-19) 10/19/21 21:25 BUN 17 mg/dL (6-20) 10/19/21 21: Creatinine 0.6 mg/dL (0.7-1.2) L 10/19/21 21:25 GFR Calculation 142.6 mL/min (90-130) H 10/19/21 21:25 Glucose 138 mg/dL (65-115) H 10/19/21 21:25 Calculated Osmolality 294 mOsm/kg (285-295) 10/19/21 21:25 Calcium 9.7 mg/dL (8.5-10.5) 10/19/21 21:25 C-Reactive Protein 12.0 mg/L (0.0-4.9) H 10/19/21 21:25 Discharge Plan Discharge Patient Disposition: Home Clinical Impression: Ankle pain, Joint swelling Condition: Stable Prescriptions: No Action glyburide 5 mg tablet 5 mg PO BID 90 Days Qty: 180 3RF Rx Instructions: 5 mg PO twice a day; (DME) FreeStyle Roberto 2 Sensor Kit See Rx Instructions .Route Qty: 1 8RF Rx Instructions: As directed to use with Freestyle 2 reading indomethacin 50 mg capsule 50 mg PO QID PRN (Reason: pain) Qty: 20 0RF Rx Instructions: administer with food or milk metformin 1,000 mg tablet 1,000 mg PO BID 90 Days Qty: 180 3RF pioglitazone 30 mg tablet 30 mg PO QAM 90 Days Qty: 90 1RF metoprolol tartrate 50 mg tablet 25 mg PO BID 90 Days Qty: 90 3RF lovastatin 20 mg tablet 20 mg PO QAM 90 Days Qty: 90 3RF (DME) FreeStyle Roberto 2 Backus Misc See Rx Instructions .Route Qty: 1 0RF Rx Instructions: As directed with freestyle roberto 2 sensor hydrochlorothiazide 25 mg tablet 12.5 mg PO DAILY Qty: 90 3RF lisinopril 20 mg tablet 20 mg PO QAM 90 Days Qty: 90 1RF aspirin 81 mg tablet,delayed release (DR/EC) 81 mg PO DAILY Qty: 30 0RF Discharge Orders: Discharge ED (Routine); Ordered 10/19/21 Ordered By: Kya Rojas Referrals: Carlos Cameron MD [Primary Care Provider] - Discharge Diet: Usual diet Discharge Activity: Increase activity as tolerated Patient Instructions: Arthralgia (ED), Swollen Joint (ED), Opioid Safety Activity Restrictions/Additional Instructions: Thank you for visiting the emergency department. You were seen and evaluated for ankle pain and swelling. The exact cause of your symptoms is unclear. Please follow-up with your primary care provider and surgeon. You may use apxm-biy-mqrfdwr treatments for discomfort however please do not exceed the daily recommended dosage and please keep in mind that many namebrand medications contain the same active ingredients. If using NSAIDs for more than 3 days please also take tszz-ivj-vnjzylr PPI or H2 clifford for GI protection. If symptoms persist you may require repeat ultrasound in 1 week to further evaluate smaller calf veins. Please return to the emergency department for fevers, worsening or uncontrolled symptoms, or anything else that you are concerned about and feel needs emergency department evaluation. Coding Level of Care Code ED Wearing Apparel Presser for Kimberly Cuellar Exam Comprehensive
--- NOTE | 2021-10-19 21:19 | USR_ITS ---
PROCEDURE INFORMATION: Exam: US Duplex Right Lower Extremity Veins, Limited Exam date and time: 10/19/2021 10:28 PM Age: 51 years old Clinical indication: Leg, lower; Prior surgery; Surgery date: 1-6 months; Surgery type: Right total knee replacement; Patient HX: Right ankle pain and swelling post knee replacement one month ago. TECHNIQUE: Imaging protocol: Real-time Duplex ultrasound of the Right Lower Extremity with 2-D lemos scale, color Doppler flow and spectral waveform analysis with image documentation. Limited exam was focused on the right lower extremity veins. COMPARISON: CR (LOW EXM, ) 10/19/2021 6:45 PM FINDINGS: Right deep veins: Unremarkable. The common femoral, femoral, proximal profunda femoral and popliteal veins are patent without thrombus. Normal Doppler waveforms. Normal compressibility and/or augmentation response. Right superficial veins: Unremarkable. Saphenofemoral junction is patent without thrombus. Soft tissues: Unremarkable. US/[place] [id number] IMPRESSION: No evidence of deep vein thrombosis.
[2021-10-19 21:30] LABS: Basophils % 0.4 %; Eosinophils # 0.4 10^3/uL (0.0-0.8); Eosinophils % 4.7 %; Hematocrit 38.2 % (42.0-52.0); Hemoglobin 13.1 g/dL (11.7-16.6); Lymphocytes # 2.7 10^3/uL (0.8-4.8); Mean Corpuscular HGB Conc 34.3 g/dL (30.0-36.0); Mean Corpuscular Hemoglobin 28.5 pg (28.0-34.0); Mean Corpuscular Volume 83.2 fl (80-94); Mean Platelet Volume 10.2 fL (7.4-10.4); Monocytes # 0.6 10^3/uL (0.2-0.9); Monocytes % 8.4 %; Neutrophils % 50.2 %; Nucleated Red Blood Cells % 0 %; Platelet Count 153 10^3/cmm (130-400); Red Blood Count 4.59 10^6/uL (4.1-5.3); Red Cell Distribution Width 12.6 % (12.1-15.1); White Blood Count 7.4 10^3/uL (4.0-10.0)
[2021-10-19 21:33] LABS: Erythrocyte Sedimentation Rate 8 mm/hr (0-10)
[2021-10-19 21:51] LABS: Blood Urea Nitrogen 17 mg/dL (6-20); Calcium 9.7 mg/dL (8.5-10.5); Carbon Dioxide 25 mmol/L (22-29); Chloride 101 mmol/L (98-107); Glomerular Filtration Rate 142.6 mL/min (90-130); Glucose 138 mg/dL (65-115); Osmolality Calculated 294 mOsm/kg (285-295); Sodium 140 mmol/L (136-145)
[2021-10-19] MEDS: morphine 4 mg/mL SDV 1 mL IVP (22:14)
[2021-10-20 00:05] VITALS: BP 120/76; PULSE 80; RESP 16; TEMP 36.7; O2SAT 97
== END 2021-10-19 23:29 | disposition home or self-care (01) ==
PROVIDERS: Emergency Medicine; Emergency Provider Emergency Medicine; PCP Family Medicine
DX: M25.571 Pain in right ankle and joints of right foot (principal); M25.471 Effusion, right ankle; Z79.84 Long term (current) use of oral hypoglycemic drugs; Z79.82 Long term (current) use of aspirin; E11.9 Type 2 diabetes mellitus without complications; I10 Essential (primary) hypertension
CPT/HCPCS: 73610; 80048; 85025; 85651; 86140; 93971; 96374; 99284; J2270

== ENCOUNTER 2021-11-07 06:00 | Outpatient (RCR) | payer BC, SELFPAY | END 2021-12-07 23:59 | disposition home or self-care (01) | LOC: MPT 06:00 | PROVIDERS: PCP Family Medicine; Referring Provider Orthopaedic Surgery; Visit Provider Orthopaedic Surgery | DX: Z47.1 Aftercare following joint replacement surgery (principal); Z96.651 Presence of right artificial knee joint | CPT/HCPCS: 97110; G0283 ==

== ENCOUNTER → 2022-08-30 10:57 | Outpatient (BNVA) | payer OTHER, SELFPAY | PROVIDERS: PCP Family Medicine; Visit Provider Family Medicine | DX: E78.00 Pure hypercholesterolemia, unspecified (principal); I10 Essential (primary) hypertension; E11.9 Type 2 diabetes mellitus without complications | CPT/HCPCS: 80053; 80061; 83036; 85025 ==

== ENCOUNTER → 2022-11-10 17:39 | Outpatient (BNVA) | payer OTHER, SELFPAY | PROVIDERS: PCP Family Medicine; Visit Provider Emergency Medicine | DX: M25.562 Pain in left knee (principal) | CPT/HCPCS: 73562 ==

== ENCOUNTER → 2023-05-17 16:58 | Outpatient (BNVA) | payer OTHER, SELFPAY | PROVIDERS: PCP Family Medicine; Visit Provider Emergency Medicine | DX: M25.571 Pain in right ankle and joints of right foot (principal) | CPT/HCPCS: 73610 ==

== ENCOUNTER 2023-05-29 09:07 | Outpatient (CLI) | payer OTHER, SELFPAY | END 2023-05-29 09:08 | disposition home or self-care (01) | LOC: SPT 09:08 | PROVIDERS: PCP Family Medicine; Visit Provider Podiatrist Foot & Ankle Surgery | DX: Z46.89 Encounter for fitting and adjustment of other specified devices (principal); S82.831D Other fracture of upper and lower end of right fibula, subsequent encounter for closed fracture with routine healing; S93.409D Sprain of unspecified ligament of unspecified ankle, subsequent encounter; X58.XXXD Exposure to other specified factors, subsequent encounter | CPT/HCPCS: 97760; L4361 ==

== ENCOUNTER → 2023-11-13 11:27 | Outpatient (BNVA) | payer OTHER, SELFPAY | PROVIDERS: PCP Nurse Practitioner; Visit Provider Nurse Practitioner | DX: E11.65 Type 2 diabetes mellitus with hyperglycemia (principal) | CPT/HCPCS: 83036 ==

== ENCOUNTER → 2024-04-11 13:56 | Outpatient (BNVA) | payer OTHER, SELFPAY | PROVIDERS: PCP Nurse Practitioner; Visit Provider Nurse Practitioner | DX: E11.65 Type 2 diabetes mellitus with hyperglycemia (principal); I10 Essential (primary) hypertension | CPT/HCPCS: 80053; 80061; 83036; 84443; 85025; G0103 ==

== ENCOUNTER → 2025-02-23 11:11 | Outpatient (BNVA) | payer OTHER, SELFPAY | PROVIDERS: PCP Nurse Practitioner; Visit Provider Nurse Practitioner | DX: E11.65 Type 2 diabetes mellitus with hyperglycemia (principal); I10 Essential (primary) hypertension | CPT/HCPCS: 80053; 80061; 83036 ==